=== PATIENT | female | born 1955 | race Hispanic/Latino ===

== ENCOUNTER 2017-08-16 09:10 | Inpatient (IN) | payer BC, MEDICARE ==
--- NOTE | 2017-08-16 10:02 | ED PDOC ---
Arrival/HPI - General Chief Complaint: Trauma Time Seen by Provider: 08/16/17 09:20 Historian: Patient, Spouse - History of Present Illness Narrative History of Present Illness (Text): 08/16/17 09:58 This 62 yo female with pmh Alzheimer , presents to this Emergency department with her complaining of 2 episodes of falling. stated patient was eating on standing position, when patient legs gave out. Patient fell on her buttocks. Later patient got up. He took patient to the sofa. stated that he went upstairs to grab his wallet, when he heard patient falling again. stated this is not normal for patient, and he is concern something is wrong. denies loc, cp, n/v, abdominal pain. Patient denies other complains except for buttock pain. Time/Duration: Prior to Arrival Context: Home Past Medical History - Provider Review Nursing Documentation Reviewed: Yes - Infectious Disease Hx of Infectious Diseases: None - Reproductive Menopause: Yes - Past Medical History Past Medical History: No Previous - Cardiac Hx Cardiac Disorders: No (pt denies) - Pulmonary Hx Respiratory Disorders: No - Neurological Hx Neurological Disorder: No Hx Alzheimer's Disease: Yes - HEENT Hx HEENT Disorder: No - Renal Hx Renal Disorder: No - Endocrine/Metabolic Hx Endocrine Disorders: No - Hematological/Oncological Hx Blood Transfusions: No Hx Blood Transfusion Reaction: No - Integumentary Hx Dermatological Disorder: No - Musculoskeletal/Rheumatological Hx Falls: No - Gastrointestinal Hx Gastrointestinal Disorders: No - Genitourinary/Gynecological Hx Genitourinary Disorders: No - Psychiatric Hx Depression: No Hx Emotional Abuse: No Hx Physical Abuse: No Hx Substance Use: No - Past Surgical History Past Surgical History: No Previous - Anesthesia Hx Anesthesia: No Hx Anesthesia Reactions: No Hx Malignant Hyperthermia: No - Suicidal Assessment Feels Threatened In Home Enviroment: No Family/Social History - Physician Review Nursing Documentation Reviewed: Yes Family/Social History: Other (noncontributory) Smoking Status: Never Smoked Hx Alcohol Use: No Hx Substance Use: No Allergies/Home Meds Allergies/Adverse Reactions: Allergies No Known Allergies Allergy (Verified 08/16/17 09:28) Home Medications: Home Meds Medication Instructions Recorded Confirmed Donepezil [Aricept] 1 tab PO DAILY 08/16/17 08/16/17 Review of Systems - Review of Systems Constitutional: Normal. absent: Fatigue, Fevers Eyes: Normal ENT: Normal Respiratory: Normal Cardiovascular: Normal Gastrointestinal: Normal Genitourinary Female: Normal Musculoskeletal: Normal Skin: Normal Neurological: Other (see hpi) Endocrine: Normal Hemo/Lymphatic: Normal Psychiatric: Normal Physical Exam Vital Signs Temp Pulse Resp BP Pulse Ox 08/16/17 10:07 98 F 08/16/17 09:21 98.5 F 66 20 129/72 98 Temperature: Afebrile Blood Pressure: Normal Pulse: Regular Respiratory Rate: Normal Appearance: Positive for: Well-Appearing, Non-Toxic, Comfortable Pain Distress: None Mental Status: Positive for: other (Patient is alert, but not oriented to place , person or time) - Systems Exam Head: Present: Atraumatic, Normocephalic Pupils: Present: PERRL Extroacular Muscles: Present: EOMI Conjunctiva: Present: Normal Mouth: Present: Moist Mucous Membranes Neck: Present: Normal Range of Motion Respiratory/Chest: Present: Clear to Auscultation, Good Air Exchange. No: Respiratory Distress, Accessory Muscle Use Cardiovascular: Present: Regular Rate and Rhythm, Normal S1, S2. No: Murmurs Abdomen: Present: Normal Bowel Sounds. No: Tenderness, Distention, Peritoneal Signs Back: Present: Normal Inspection Upper Extremity: Present: Normal Inspection. No: Cyanosis, Edema Lower Extremity: Present: NORMAL PULSES, Normal ROM, Other (Mild tenderness on righ buttocks/ sacrum area. no ecchymosis, or abrasion). No: Edema, CALF TENDERNESS Neurological: Present: GCS=15, CN II-XII Intact, Speech Normal, Motor Func Grossly Intact, Normal Sensory Function, Normal Cerebellar Funct Skin: Present: Warm, Dry, Normal Color. No: Rashes Psychiatric: Present: Alert, Other (baseline) Medical Decision Making ED Course and Treatment: 08/16/17 11:[address] Andrea regarding patient complaining of near syncope, CT shows right sacrum non-displaced Fx. reviewed labs, EKG. She agrees with plan for admission. 08/16/17 11:58 Patient and agrees with plan for admission. Re-evaluation Time: 11:58 Reassessment Condition: Re-examined, Improving,but remains with symptoms - Lab Interpretations Lab Results: 08/16/17 10:00 08/16/17 10:00 Lab Results 08/16/17 10:36: Urine Color Yellow, Urine Appearance Clear, Urine pH 6.5, Ur Specific Hardy 1.025, Urine Protein 30 H, Urine Glucose (UA) Negative, Urine Ketones Negative, Urine Blood Negative, Urine Nitrate Negative, Urine Bilirubin Negative, Urine Urobilinogen 0.2, Ur Leukocyte Esterase Negative, Urine RBC 0 - 2, Urine WBC 0 - 2, Ur Epithelial Cells 3 - 4, Amorphous Sediment Small, Urine Bacteria Many, Hyaline Casts 0 - 2, Urine Other Fiber 08/16/17 10:00: PT 12.2, INR 1.06, APTT 31.6 08/16/17 10:00: Sodium 141, Potassium 3.9, Chloride 102, Carbon Dioxide 29, Anion Gap 13, BUN 28 H, Creatinine 0.8, Est GFR ( Amer) > 60, Est GFR ( Non-Af Amer) > 60, Random Glucose 86, Calcium 10.2, Magnesium 2.3 H, Total Bilirubin 0.7, AST 24, ALT 30, Alkaline Phosphatase 50, Lactate Dehydrogenase 367, Total Creatine Kinase 74, Troponin I < 0.01, Total Protein 6.9, Albumin 4.1 , Globulin 2.8, Albumin/Globulin Ratio 1.5 08/16/17 10:00: WBC 5.3, RBC 4.44, Hgb 12.6, Hct 39.6, MCV 89.2, MCH 28.4, MCHC 31.8, RDW 13.4, Plt Count 216, MPV 10.0, Gran % 51.4, Lymph % (Auto) 39.6 H, Glasscock % (Auto) 6.5 H, Eos % (Auto) 2.1, Baso % (Auto) 0.4, Gran # 2.70, Lymph # 2.1, Glasscock # 0.3, Eos # 0.1, Baso # 0.02 I have reviewed the lab results: Yes Interpretation: No clinic. lab abnormalty - RAD Interpretation Narrative RAD Interpretations (Text): 08/16/17 11:43 Chest x-rays: NAD 08/16/17 11:44 PROCEDURE: CT HEAD WITHOUT CONTRAST. HISTORY: near syncope COMPARISON: None available. TECHNIQUE: Axial computed tomography images were obtained through the head/brain without intravenous contrast. Radiation dose: Total exam DLP = 965.13 mGy-cm. This CT exam was performed using one or more of the following dose reduction techniques: Automated exposure control, adjustment of the mA and/or kV according to patient size, and/or use of iterative reconstruction technique. FINDINGS: HEMORRHAGE: No intracranial hemorrhage. BRAIN: There are mild chronic microangiopathic changes. There is no mass, mass effect or abnormal extra-axial fluid collection. VENTRICLES: There is moderate age-related global parenchymal volume loss proportionate enlargement of the ventricles and cortical sulci. CALVARIUM: The skull base and calvarium are normal. PARANASAL SINUSES: Predominantly clear. MASTOID AIR CELLS: Predominantly clear. OTHER FINDINGS: None. IMPRESSION: No acute intracranial abnormality. Mild chronic microangiopathic changes and moderate age-related global parenchymal volume loss. 08/16/17 11:44 PROCEDURE: CT Lumbar Spine without contrast HISTORY: lower back pain and sacrum pain s/p fall COMPARISON: None. TECHNIQUE: Axial computed tomography images were obtained of the lumbar spine without the use of intravenous contrast. Coronal and sagittal reformatted images were created and reviewed. Radiation dose: Total exam DLP = 520.75 mGy-cm. This CT exam was performed using one or more of the following dose reduction techniques: Automated exposure control, adjustment of the mA and/or kV according to patient size, and/or use of iterative reconstruction technique. FINDINGS: VERTEBRAE: There is mild dextroscoliosis in the lumbar spine. There is degenerative 3 mm retrolisthesis of L4 on L5. There is diffuse bone demineralization. There is no acute fracture in the lumbar spine, spondylolysis or spondylolisthesis. There is an acute nondisplaced fracture in the right sacral ala. The sacroiliac joints are grossly preserved except for mild degenerative osteoarthrosis. DISCS/SPINAL CANAL/NEURAL FORAMINA: There is multilevel degenerative disc disease with anterior spurring, reduced disc heights and multilevel facet arthropathy, worse at L4-5 with desiccation of the L4-5 disc. L4-5, there is a diffuse disc bulge and mild ligamentum flavum infolding without spinal canal stenosis. Mild bilateral facet arthropathy contributes to moderate neural foraminal stenosis. PARASPINAL SOFT TISSUES: The paraspinous soft tissues are normal OTHER FINDINGS: None. IMPRESSION: 1. Acute nondisplaced fracture in the right sacral ala. 2. No evidence of acute fracture in the lumbar spine or spondylolysis. 3. Multilevel degenerative disc disease, worse at L4-5 with degenerative 3 mm retrolisthesis of L4 on L5, moderate neural foraminal stenosis without spinal canal stenosis. Radiology Orders: 08/16/17 09:54 HEAD W/O CONTRAST [CT] Stat LUMBAR SPINE W/O CONTRAST [CT] Stat 08/16/17 09:56 CHEST PORTABLE [RAD] Stat - EKG Interpretation Interpreted by ED Physician: Yes (Sinus Bradycardia @ [address] changes) Type: 12 lead EKG Comparison: No previous EKG avail. - Medication Orders Current Medication Orders: Sodium Chloride (Sodium Chloride 0.9%) 1,000 mls @ 999 mls/hr IV .Q1H1M STA Stop: 08/16/17 12:48 Disposition/Present on Arrival - Present on Arrival Any Indicators Present on Arrival: No History of DVT/PE: No History of Uncontrolled Diabetes: No Urinary Catheter: No History of Decub. Ulcer: No History Surgical Site Infection Following: None - Disposition Have Diagnosis and Disposition been Completed?: Yes Diagnosis: Sacral fracture, closed, Near syncope Disposition: HOSPITALIZED Disposition Time: 11:58 Patient Plan: Admission Patient Problems: Current Active Problems Problem Status Onset Near syncope Acute Sacral fracture, closed Acute Condition: STABLE Referrals: Americo Mathew MD [Primary Care Provider] - Follow up with primary Forms: [email or web address] (Serbian)
[2017-08-16 10:25] LABS: ALB/GLOB RATIO 1.5 (1.1-1.8); ALBUMIN 4.1 g/dL (3.0-4.8); ALT/SGPT 30 U/L (7-56); AST/SGOT 24 U/L (14-36); BLOOD UREA NITROGEN 28 mg/dL (7-21); CALCIUM 10.2 mg/dL (8.4-10.5); GFR AFRICAN-AMERICAN > 60; GFR NON-AFRICAN AMERICAN > 60; MAGNESIUM 2.3 mg/dL (1.7-2.2)
[2017-08-16 10:26] LABS: BASO # 0.02 K/mm3 (0.0-2.0); BASO % 0.4 % (0.0-3.0); EOS # 0.1 (0.0-0.7); EOS % 2.1 % (1.5-5.0); GRAN # 2.7 (1.4-6.5); GRAN % 51.4 % (50.0-68.0); HEMOGLOBIN 12.6 g/dL (12.0-16.0); LYMPH # 2.1 (1.2-3.4); LYMPH % 39.6 % (22.0-35.0); MEAN CELL VOLUME 89.2 fl (80.0-105.0); MEAN CORPUSCULAR HEMOGLOBIN 28.4 pg (25.0-35.0); MEAN CORPUSCULAR HGB CONC 31.8 g/dl (31.0-37.0); MONO # 0.3 (0.1-0.6); MONO % 6.5 % (1.0-6.0); RBC 4.44 10^6/uL (3.5-6.1); RED CELL DISTRIBUTION WIDTH 13.4 % (11.5-14.5); WHITE BLOOD COUNT 5.3 10^3/ul (4.5-11.0)
[2017-08-16 10:34] LABS: INR 1.06 (0.93-1.08); PARTIAL THROMBOPLASTIN TIME 31.6 Seconds (25.1-36.5); PROTHROMBIN TIME 12.2 SECONDS (9.4-12.5)
[2017-08-16 10:36] LABS: TROPONIN I < 0.01 ng/mL
[2017-08-16 10:44] LABS: PH,URINE 6.5 (4.7-8.0); URINE BILIRUBIN NEGATIVE (NEGATIVE); URINE BLOOD NEGATIVE (NEGATIVE); URINE COLOR YELLOW (YELLOW); URINE GLUCOSE (UA) NEGATIVE (NEGATIVE); URINE LEUKOCYTE ESTERASE NEGATIVE Leu/uL (NEGATIVE); URINE NITRATE NEGATIVE (NEGATIVE); URINE PROTEIN 30 mg/dL (<30 mg/dL); URINE UROBILINOGEN 0.2 E.U./dL (<1 E.U./dL)
[2017-08-16 10:45] LABS: URINE APPEARANCE CLEAR (CLEAR)
[2017-08-16 10:49] LABS: URINE RBC 0 - 2 /hpf (0-2); URINE WBC 0 - 2 /hpf (0-6)
[2017-08-16 10:50] LABS: URINE AMORPHOUS SEDIMENT SMALL; URINE BACTERIA MANY (NEG); URINE HYALINE CAST 0 - 2 /hpf
--- NOTE | 2017-08-16 11:14 | CT ---
PROCEDURE: CT HEAD WITHOUT CONTRAST. HISTORY: near syncope COMPARISON: None available. TECHNIQUE: Axial computed tomography images were obtained through the head/brain without intravenous contrast. Radiation dose: Total exam DLP = 965.13 mGy-cm. This CT exam was performed using one or more of the following dose reduction techniques: Automated exposure control, adjustment of the mA and/or kV according to patient size, and/or use of iterative reconstruction technique. FINDINGS: HEMORRHAGE: No intracranial hemorrhage. BRAIN: There are mild chronic microangiopathic changes. There is no mass, mass effect or abnormal extra-axial fluid collection. VENTRICLES: There is moderate age-related global parenchymal volume loss proportionate enlargement of the ventricles and cortical sulci. CALVARIUM: The skull base and calvarium are normal. PARANASAL SINUSES: Predominantly clear. MASTOID AIR CELLS: Predominantly clear. OTHER FINDINGS: None. IMPRESSION: No acute intracranial abnormality. Mild chronic microangiopathic changes and moderate age-related global parenchymal volume loss.
--- NOTE | 2017-08-16 11:31 | CT ---
PROCEDURE: CT Lumbar Spine without contrast HISTORY: lower back pain and sacrum pain s/p fall COMPARISON: None. TECHNIQUE: Axial computed tomography images were obtained of the lumbar spine without the use of intravenous contrast. Coronal and sagittal reformatted images were created and reviewed. Radiation dose: Total exam DLP = 520.75 mGy-cm. This CT exam was performed using one or more of the following dose reduction techniques: Automated exposure control, adjustment of the mA and/or kV according to patient size, and/or use of iterative reconstruction technique. FINDINGS: VERTEBRAE: There is mild dextroscoliosis in the lumbar spine. There is degenerative 3 mm retrolisthesis of L4 on L5. There is diffuse bone demineralization. There is no acute fracture in the lumbar spine, spondylolysis or spondylolisthesis. There is an acute nondisplaced fracture in the right sacral ala. The sacroiliac joints are grossly preserved except for mild degenerative osteoarthrosis. DISCS/SPINAL CANAL/NEURAL FORAMINA: There is multilevel degenerative disc disease with anterior spurring, reduced disc heights and multilevel facet arthropathy, worse at L4-5 with desiccation of the L4-5 disc. L4-5, there is a diffuse disc bulge and mild ligamentum flavum infolding without spinal canal stenosis. Mild bilateral facet arthropathy contributes to moderate neural foraminal stenosis. PARASPINAL SOFT TISSUES: The paraspinous soft tissues are normal OTHER FINDINGS: None. IMPRESSION: 1. Acute nondisplaced fracture in the right sacral ala. 2. No evidence of acute fracture in the lumbar spine or spondylolysis. 3. Multilevel degenerative disc disease, worse at L4-5 with degenerative 3 mm retrolisthesis of L4 on L5, moderate neural foraminal stenosis without spinal canal stenosis.
--- NOTE | 2017-08-16 11:35 | RAD ---
HISTORY: near syncope COMPARISON: 08/25/2015. FINDINGS: LUNGS: The lungs are well inflated and clear. PLEURA: No significant pleural effusion identified, no pneumothorax apparent. CARDIOVASCULAR: Normal. OSSEOUS STRUCTURES: Within normal limits for the patient's age with VISUALIZED UPPER ABDOMEN: Normal. OTHER FINDINGS: None. IMPRESSION: No active pulmonary disease.
[2017-08-16] MEDS ORDERED: Sodium Chloride 0.9% 1,000 ML IV STA (11:48)
[2017-08-16] MEDS ORDERED: Petrolatum Oint Foilpak (5 gm) TOP PRN (14:54)
[2017-08-16 14:55] VITALS: BMI 20.1
[2017-08-16] MEDS ORDERED: Influenza Vaccine 60 mcg/0.5 mL SYR (4YR UP) IM ONE (14:55)
[2017-08-16] MEDS ORDERED: Pneumococcal 23-Valent Vaccine IM ONE (14:55)
--- NOTE | 2017-08-16 15:49 | CARD ---
APPROVED REPORT EKG Measurement Heart [id number] CO [id number] <Conclusion> Sinus bradycardia Otherwise normal ECG
--- NOTE | 2017-08-17 03:26 | HP ---
HISTORY OF PRESENT ILLNESS: The patient is a 62-year-old brought in by . The patient's states lately she has not been sleeping well and that was disturbing his sleep, but he states last night she slept well, she woke up around 8:00 and then she got up to go to kitchen. While she was eating her sandwich, she just flopped down without any warning sign. He states he saw her twitching and after that she just sat down on the floor as if her muscles gave up. She had never lost consciousness. Did not complain of any chest pain or shortness of breath. The patient's states he went upstairs to grab his wallet to be with her and to call ambulance and she came back. While he was on his way down he heard thump and he found her on the floor. She did not lose consciousness, did not have any seizure-like activity, did not complain of any chest pain. No nausea or vomiting. No diarrhea. Denies any chest pain. PAST MEDICAL HISTORY: Only significant for dementia. ALLERGIES: SHE IS NOT ALLERGIC TO ANY MEDICATION. MEDICATIONS AT HOME: According to , she does not take any medicine except Aricept. FAMILY HISTORY: She has a strong family history of dementia. SOCIAL HISTORY: She is , lives with her . Denies smoking, drinking, or alcohol use. REVIEW OF SYSTEMS: Significant for being forgetful and having being confused and disoriented at times. PHYSICAL EXAMINATION: GENERAL: She is awake, alert, oriented, and anxious. VITAL SIGNS: She is afebrile, pulse 75, respirations 20, and blood pressure 129/62. LUNGS: Bilateral good airflow. No rhonchi or crackle. HEART: S1 and S2 audible. ABDOMEN: Soft and nontender. No rebound. No guarding. NEUROLOGIC: She is awake, alert, oriented, able to communicate, able to move all extremities. LABORATORY EXAMINATION: WBC of 5.3, hemoglobin 12.6, hematocrit 39.6, and platelet 216. PT 12.2 and INR 1.06. Chemistry: Sodium 141, potassium 3.9, chloride 102, CO2 of 29, BUN 28, creatinine 0.8, blood sugar of 86, magnesium 2.3, calcium 10.2, AST 74, and ALT 30. Urinalysis is unremarkable. X-ray chest, no active pulmonary disease. Lumbar spine CT showed non-displaced fracture in the right sacral ala. No evidence of acute fracture. Multilevel degenerative disk disease. ASSESSMENT AND PLAN: 1. Status post fall. 2. Generalized weakness, doubt transient ischemic attack or cerebrovascular accident, looks like discoordination. 3. Status post fall and sacral non-displaced fracture. PLAN: I will order for carotid Doppler. I will start her on IV fluid. Dr. Ulloa for consult. Ordered for carotid Doppler. Request for physical therapy evaluation. Patricia Andrea MD
[2017-08-17 08:01] VITALS: RESP 18
[2017-08-17 19:08] VITALS: O2SAT 97
--- NOTE | 2017-08-17 21:10 | PN ---
DATE: SUBJECTIVE: The patient is 62-year-old, seen and examined, seems to be confused and disoriented, unable to recollect her information, was evaluated by physical therapy. High risk of fall, recommended for subacute rehab versus TCU. PHYSICAL EXAMINATION: VITAL SIGNS: She is afebrile, pulse 60, respirations 18, and blood pressure 128/64. LUNGS: Bilateral fair airflow. No rhonchi or crackles. HEART: S1 and S2 audible. ABDOMEN: Soft, nontender. No rebound. No guarding. NEUROLOGIC: She is awake and alert, but somewhat confused and disoriented. LABORATORY DATA: Her troponin is negative. Her liver and kidney function is fine. Urinalysis is unremarkable. Carotid Doppler is pending. CT scan of the head is negative. ASSESSMENT: 1. Status post fall. 2. History of dementia. 3. Deconditioning and difficulty walking. PLAN: I will request for TCU evaluation. The patient is high risk of fall. Awaiting a neuro input. We will discuss with the patient's if he is agreeable we might put her in TCU or home PT. Patricia Andrea MD
--- NOTE | 2017-08-18 08:12 | CON ---
DATE: 08/17/2017 ORTHOPEDIC CONSULT LOCATION: The patient is in room 365. HISTORY OF PRESENT ILLNESS: This is a 62-year-old female who slipped and fell at home just prior to admission actually 2 times at home. The found her on the floor, came to the Emergency Room. X-ray the point of pain, which was the right side of her low back at the sacrum showed an undisplaced fracture of the sacrum, consistent with a stable fracture pattern that should be unable to get up out of bed to avoid further osteopenia. We will do physical therapy here at the hospital to make sure she walks with more security and may be walk with a walker or at least a cane, but she should get stronger here, so she does not fall again, because if she keeps falling that she could break her hip possible, so what we will do is give her physical therapy and get her up out of bed. The pain is minimal. She has no signs of hip fracture or other lower extremities fractures. FINAL DIAGNOSIS: Stable right sacral alar fracture consistent with her early physical therapy ambulation with a walker, weightbearing to tolerance. Segundo Ulloa DO
--- NOTE | 2017-08-18 08:32 | CP.PCM.CON ---
<Apryl Molina - Last Filed: 08/18/17 18:27> History of Present Illness - History of Present Illness History of Present Illness: PGY-[address] Oviedo Neurology Consult: AMS/Fall Ms Barbara Glover, 62F, with PMHx sig for past fall and dementia (baseline: can self feed but cannot change clothes/shower), was brought in from home after a fall. provided the history. Lately, pt has been drinking less water due to lack of motivation, no choking noted. After getting up in the morning, pt got up to the kitchen. While eating a sandwich, pt just flopped down without any warning sign. No loss of consciousness. Per , pt sat down on the floor and twitched. While went upstairs to call the ambulance, her heart a thump and found pt on the floor. Pt sustained a stable R sacral alar fracture. No surgery needed. During the hospital stay, Pt get confused, agitated and climb out of bed. 1:[address] for safety and Ativan was given. VS stable except occasional bradycardia. CBC and CMP unremarkable. U/A negative. Denies LOC, shaking, CP, SOB, N/V/D/C, dysuria, urinary frequency. Travel from [place] during and came back to [place] around [place]. Denies recent change in med or recent sickness. Head CT: No acute intracranial abnomrality. Mild chronic microangiopathic changes and moderate age related global parenchmal volume loss Lumbar CT: Acute non-displaces R sacral ala fracture. Degenerative disc disease L4-5 with retrolithesis 3mm on L4 on L5 Moderate neural foraminal stenosis without spinal cancal stenosis PMH Dementia. Hx Fall PSH ORIF Humerus, L FH Dementia in family history. Mom has diabetes SH , living with at home. Denies smoking, drink, drugs All NKDA Med Donepezil 5mg daily at 1pm PMD: Dr Mathew Neurologist: Dr Casi Pritchett, [facility]. Pt did not follow up for a while already , Mr Glover, (m) [phone] Review of Systems - Review of Systems All systems: reviewed and no additional remarkable complaints except Review of Systems: As per HPI Past Patient History - Infectious Disease Hx of Infectious Diseases: None - Past Social History Smoking Status: Never Smoked - CARDIAC Hx Cardiac Disorders: No (pt denies) - PULMONARY Hx Respiratory Disorders: No - NEUROLOGICAL Hx Neurological Disorder: No Hx Alzheimer's Disease: Yes (dx 2011) - HEENT Hx HEENT Problems: Yes (eyeglasses) - RENAL Hx Chronic Kidney Disease: No - ENDOCRINE/METABOLIC Hx Endocrine Disorders: No - HEMATOLOGICAL/ONCOLOGICAL Hx Blood Disorders: No - INTEGUMENTARY Hx Dermatological Problems: No - MUSCULOSKELETAL/RHEUMATOLOGICAL Hx Falls: Yes (2012 and 2x's today) - GASTROINTESTINAL Hx Gastrointestinal Disorders: No - GENITOURINARY/GYNECOLOGICAL Hx Genitourinary Disorders: No - PSYCHIATRIC Hx Depression: No Hx Emotional Abuse: No Hx Physical Abuse: No Other/Comment: pt has trouble sleeping at night - SURGICAL HISTORY Hx Surgeries: No - ANESTHESIA Hx Anesthesia: No Hx Anesthesia Reactions: No Hx Malignant Hyperthermia: No Meds Allergies/Adverse Reactions: Allergies Allergy/AdvReac Type Severity Reaction Status Date / Time No Known Allergies Allergy Verified 08/16/17 09:28 - Medications Medications: Current Medications Acetaminophen (Tylenol 325mg Tab) 650 mg PO Q6H PRN PRN Reason: Fever >100.4 F Donepezil HCl (Aricept) 5 mg PO DAILY [facility] Emollient Ointment (Vaseline Oint) 5 gm TOP Q4 PRN PRN Reason: Dry skin Lorazepam (Ativan) 0.5 mg IVP Q12H PRN; Protocol PRN Reason: Anxiety Last Admin: 08/17/17 19:08 Dose: 0.5 mg Physical Exam - Constitutional Appears: No Acute Distress - Head Exam Head Exam: ATRAUMATIC, NORMAL INSPECTION, NORMOCEPHALIC - Eye Exam Eye Exam: EOMI, Normal appearance, PERRL Pupil Exam: NORMAL ACCOMODATION - ENT Exam ENT Exam: Mucous Membranes Dry - Neck Exam Additional comments: supple - Respiratory Exam Respiratory Exam: Clear to Auscultation Bilateral, NORMAL BREATHING PATTERN - Cardiovascular Exam Cardiovascular Exam: REGULAR RHYTHM - GI/Abdominal Exam GI & Abdominal Exam: Normal Bowel Sounds, Soft. absent: Tenderness - Extremities Exam Extremities exam: Positive for: pedal pulses present. Negative for: calf tenderness, pedal edema - Neurological Exam Additional comments: AAO x 1 Recall 0/3 Motor: move all extremites sensory: grossly intact limited by incoorperation - Psychiatric Exam Psychiatric exam: Anxious - Skin Skin Exam: Dry, Warm Results - Vital Signs Recent Vital Signs: Last Vital Signs Temp 98.5 F 08/17/17 16:00 Pulse 63 08/17/17 18:00 Resp 18 08/17/17 16:00 BP 113/72 08/17/17 16:00 Pulse Ox 97 08/17/17 16:00 - Labs Result Diagrams: 08/16/17 10:00 08/16/17 10:00 Assessment & Plan - Assessment and Plan (Free Text) Plan: Consult: AMS/Fall Ms Barbara Glover, 62F, with PMHx sig for dementia, was brought in from home after a fall. No loss of consciousness. Pt sustained a stable R sacral alar fracture. No surgery needed. During the hospital stay, Pt get confused, agitated and climb out of bed. 1:[address] for safety and Ativan was given. VS stable except SBP was slightly low in 100s/60s in one occasion and occasional bradycardia. CBC unremarkable. CMP is significant for slight dehydration at admission. U/A negative. Fall likely due to transient hypoperfusion compounded by bradycardia - CT head: Head CT: No acute intracranial abnomrality. Mild chronic microangiopathic changes and moderate age related global parenchmal volume loss - Carotid doppler pending official read - Recommend Home PT - Maintain SBP 120-130 - gentle hydration during the day - avoid sudden drop in blood pressire - Get up or sit down slowly, count to 10 Sacral fracture, acute, non-displaced Status post mechanical fall Gait dysfunction possibly due to deconditioning with global parenchymal volume loss due to dementia - Lumbar CT: Acute non-displaces R sacral ala fracture. Degenerative disc disease L4-5 with retrolithesis 3mm on L4 on L5; Moderate neural foraminal stenosis without spinal cancal stenosis - Recommend Home Physical therapy - conservative management per primary Dementia - COntinue current medication during early AM to stay active in daytime - build mental exercises during daily routine - follow up with neurologist outpatient for further eval. - Discussed about risk/benefit and side effect of donepazil and possibly nemanda. Especially effect on bradycardia - thiamine 100mg daily; CoQ 200mg daily; turmeric curcumin 1000mg qAM s/r/d/w Dr. Oviedo <Lorenzo Oviedo - Last Filed: 08/19/17 10:22> Results - Vital Signs Recent Vital Signs: Last Vital Signs Temp 97.4 F L 08/18/17 08:41 Pulse 54 L 08/18/17 08:41 Resp 18 08/18/17 08:41 BP 113/65 08/18/17 08:41 Pulse Ox 97 08/18/17 08:41 - Labs Result Diagrams: 08/16/17 10:00 08/16/17 10:00 Attending/Attestation - Attestation I have personally seen and examined this patient.: Yes I have fully participated in the care of the patient.: Yes I have reviewed all pertinent clinical information: Yes
[2017-08-18 08:42] VITALS: BP 113/65; PULSE 54; TEMP 97.4
[2017-08-18] MEDS ORDERED: Influenza Vaccine 60 mcg/0.5 mL SYR (4YR UP) IM ONE (12:56)
--- NOTE | 2017-08-19 01:17 | DS ---
HISTORY OF PRESENT ILLNESS: The patient is a 62-year-old who came in after she flopped on the floor, did not lose consciousness as per , probably she had some muscular . The patient diagnosis of early Alzheimer, has been observed, being agitated more at nighttime, but does not want to give her any Ativan while she was here. PHYSICAL EXAMINATION: GENERAL: Today; she is awake, alert, oriented, and communicative. VITAL SIGNS: She is afebrile, pulse 54, respirations 18, and blood pressure 113/65. LUNGS: Bilateral fair airflow. No rhonchi or crackle. HEART: S1 and S2 audible. ABDOMEN: Soft and nontender. No rebound. No guarding. NEUROLOGIC: The patient is awake, alert, and forgetful. ASSESSMENT: 1. Status post fall, etiology unknown. Carotid Doppler is pending. 2. Fracture of ala of sacrum. 3. Early Alzheimer. PLAN: The patient will be discharged home today after the physical therapy arrangement has been made. She will continue her Aricept and we will try to arrange for home therapy as per family's request. Patricia Andrea MD
== END 2017-08-18 13:32 | disposition home or self-care (01) | DRG 552 ==
LOC: ED 09:10 → ERH 12:00 → 3RNO 13:14
PROVIDERS: ADMIT Internal Medicine; ATTEND Internal Medicine
DX: S32.110A Nondisplaced Zone I fracture of sacrum, initial encounter for closed fracture (principal); G30.9 Alzheimer's disease, unspecified; F02.80 Dementia in other diseases classified elsewhere, unspecified severity, without behavioral disturbance, psychotic disturbance, mood disturbance, and anxiety; M51.36 Other intervertebral disc degeneration, lumbar region; R26.2 Difficulty in walking, not elsewhere classified; W19.XXXA Unspecified fall, initial encounter; Y93.89 Activity, other specified; Y92.009 Unspecified place in unspecified non-institutional (private) residence as the place of occurrence of the external cause

== ENCOUNTER 2017-08-24 03:24 | Inpatient (IN) | payer MEDICARE ==
[2017-08-24 03:31] VITALS: BMI 20.2
--- NOTE | 2017-08-24 03:53 | ED PDOC ---
Arrival/HPI - General Chief Complaint: Altered Mental Status Time Seen by Provider: 08/24/17 03:34 Historian: Spouse - History of Present Illness Narrative History of Present Illness (Text): 08/24/17 03:50 Barbara Glover is a 62 year old female, whose past medical history includes Alzheimer's dementia and recent sacral fracture, who presents to the Emergency department brought in by for worsening dementia tonight. states patient has been experiencing increasing agitation and confusion. Husban states patient became very violent with him tonight. Patient denies any chest pain, abdominal pain, shortness of breath, nausea, vomiting, or any other complaints. Symptom Onset: Gradual Symptom Course: Unchanged Activities at Onset: Light Context: Home Past Medical History - Provider Review Nursing Documentation Reviewed: Yes - Infectious Disease Hx of Infectious Diseases: None - Past Medical History Past Medical History: No Previous - Cardiac Hx Cardiac Disorders: No (pt denies) - Pulmonary Hx Respiratory Disorders: No - Neurological Hx Neurological Disorder: No Hx Alzheimer's Disease: Yes (dx 2011) - HEENT Hx HEENT Disorder: Yes (eyeglasses) - Renal Hx Renal Disorder: No - Endocrine/Metabolic Hx Endocrine Disorders: No - Hematological/Oncological Hx Blood Disorders: No - Integumentary Hx Dermatological Disorder: No - Musculoskeletal/Rheumatological Hx Falls: Yes (2012 and 2x's today) - Gastrointestinal Hx Gastrointestinal Disorders: No - Genitourinary/Gynecological Hx Genitourinary Disorders: No - Psychiatric Hx Depression: No Hx Emotional Abuse: No Hx Physical Abuse: No Hx Substance Use: No Other/Comment: pt has trouble sleeping at night - Past Surgical History Past Surgical History: No Previous - Anesthesia Hx Anesthesia: No Hx Anesthesia Reactions: No Hx Malignant Hyperthermia: No - Suicidal Assessment Feels Threatened In Home Enviroment: No Family/Social History - Physician Review Nursing Documentation Reviewed: Yes Family/Social History: Unknown Family HX Smoking Status: Never Smoked Hx Alcohol Use: No Hx Substance Use: No Allergies/Home Meds Allergies/Adverse Reactions: Allergies No Known Allergies Allergy (Verified 08/24/17 03:30) Home Medications: Home Meds Medication Instructions Recorded Confirmed Donepezil [Aricept] 1 tab PO DAILY 08/16/17 08/24/17 Review of Systems - Physician Review All systems were reviewed & negative as marked: Yes - Review of Systems Constitutional: Normal. absent: Fevers Eyes: Normal ENT: Normal Respiratory: Normal. absent: SOB, Cough Cardiovascular: Normal. absent: Chest Pain Gastrointestinal: Normal. absent: Abdominal Pain, Diarrhea, Nausea, Vomiting Genitourinary Female: Normal. absent: Dysuria, Frequency, Hematuria, Urine Output Changes Musculoskeletal: Normal. absent: Back Pain, Neck Pain Skin: Normal. absent: Rash Neurological: Other (+confusion). absent: Headache, Dizziness Endocrine: Normal Hemo/Lymphatic: Normal Psychiatric: Other (+agitation) Physical Exam Vital Signs Reviewed: Yes Vital Signs Temp Pulse Resp BP Pulse Ox 08/24/17 08:44 98.0 F 61 17 150/89 97 08/24/17 07:24 98 F 79 20 129/74 97 08/24/17 03:46 98.2 F 60 17 147/67 100 Temperature: Afebrile Blood Pressure: Normal Pulse: Regular Respiratory Rate: Normal Appearance: Positive for: Well-Appearing, Non-Toxic, Comfortable Pain Distress: None Mental Status: Positive for: other (Alert and Oriented x2) - Systems Exam Head: Present: Atraumatic, Normocephalic Pupils: Present: PERRL Extroacular Muscles: Present: EOMI Conjunctiva: Present: Normal Mouth: Present: Moist Mucous Membranes Neck: Present: Normal Range of Motion Respiratory/Chest: Present: Clear to Auscultation, Good Air Exchange. No: Respiratory Distress, Accessory Muscle Use Cardiovascular: Present: Regular Rate and Rhythm, Normal S1, S2. No: Murmurs Abdomen: Present: Normal Bowel Sounds. No: Tenderness, Distention, Peritoneal Signs Back: Present: Normal Inspection Upper Extremity: Present: Normal Inspection. No: Cyanosis, Edema Lower Extremity: Present: Normal Inspection. No: Edema Neurological: Present: GCS=15, CN II-XII Intact, Speech Normal Skin: Present: Warm, Dry, Normal Color. No: Rashes Psychiatric: Present: Alert. No: Oriented x 3 (oriented x2) Medical Decision Making ED Course and Treatment: 08/24/17 03:51 Impression: 62 year old female brought in for increasing agitation and confusion. Plan: -- EKG -- Chest X-ray -- Labs, alcohol level -- Urinalysis, urine drug screen -- Reassess and disposition Prior Visits: Notes and results from previous visits were reviewed. On 08/16/2017, pt was seen in the Emergency department s/p fall. Pt was admitted to the hospital for further evaluation. Progress Notes: Reviewed EKG, NSR at [address]-segment elevations or depressions, no T-wave inversions, normal intervals. 08/24/17 05:17 Chest X-ray reviewed, shows no acute processes. Case discussed with Dr. Oreilly, who is aware and agrees with plan. Requests PES evaluation. Pt medically cleared for psychiatric evaluation/admission. seen by pes for admission - Lab Interpretations Lab Results: 08/24/17 04:13 08/24/17 04:13 Lab Results 08/24/17 05:35: Urine Opiates Screen Negative, Urine Methadone Screen Negative, Ur Barbiturates Screen Negative, Ur Phencyclidine Scrn Negative, Ur Amphetamines Screen Negative, U Benzodiazepines Scrn Negative, U Oth Cocaine Metabols Negative, U Cannabinoids Screen Negative 08/24/17 05:35: Urine Color Yellow, Urine Appearance Clear, Urine pH 6.0, Ur Specific [place] 1.010, Urine Protein Negative, Urine Glucose (UA) Negative, Urine Ketones Negative, Urine Blood Negative, Urine Nitrate Negative, Urine Bilirubin Negative, Urine Urobilinogen 0.2, Ur Leukocyte Esterase Negative 08/24/17 04:13: Alcohol, Quantitative < 10 08/24/17 04:13: Salicylates < 1 L, Acetaminophen < 10.0 L 08/24/17 04:13: Sodium 141, Potassium 3.9, Chloride 103, Carbon Dioxide 27, Anion Gap 15, BUN 26 H, Creatinine 0.8, Est GFR ( Amer) > 60, Est GFR ( Non-Af Amer) > 60, Random Glucose 80, Calcium 9.5, Total Bilirubin 0.3, AST 27, ALT 35, Alkaline Phosphatase 57, Total Protein 6.6, Albumin 3.9, Globulin 2.7, Albumin/Globulin Ratio 1.4 08/24/17 04:13: WBC 7.0 D, RBC 4.05, Hgb 11.7 L, Hct 35.7 L, MCV 88.1, MCH 28.9 , MCHC 32.8, RDW 13.2, Plt Count 222, MPV 9.7, Gran % 39.4 L, Lymph % (Auto) 49.9 H, [place] % (Auto) 8.0 H, Eos % (Auto) 2.0, Baso % (Auto) 0.7, Gran # 2.76, Lymph # (Auto) 3.5 H, [place] # (Auto) 0.6, Eos # (Auto) 0.1, Baso # (Auto) 0.05 I have reviewed the lab results: Yes - RAD Interpretation Radiology Orders: 08/24/17 03:37 CHEST PORTABLE [RAD] Stat Rehab Aid: ED Physician - EKG Interpretation Interpreted by ED Physician: Yes Type: 12 lead EKG - Medication Orders Current Medication Orders: Acetaminophen (Tylenol 325mg Tab) 650 mg PO Q4 PRN PRN Reason: Pain, Mild (1-3) Al Hydrox/Mg Hydrox/Simethicone (Maalox Plus 30 Ml) 30 ml PO DAILY PRN PRN Reason: Upset Stomach Donepezil HCl (Aricept) 5 mg PO HS [facility] Last Admin: 08/24/17 21:09 Dose: 5 mg Haloperidol (Haldol) 0.25 mg PO HS PRN; Protocol PRN Reason: Insomnia Last Admin: 08/24/17 22:40 Dose: 0.25 mg Re-Assess: Reassess Psych Meds Document 08/24/17 23:40 WP (Rec: 08/25/17 01:59 WP [id number]) Reassess Psych Med Effective Haloperidol (Haldol) 0.25 mg PO [facility] PRN Reason: Protocol Last Admin: 08/25/17 09:06 Dose: 0.25 mg Behavioural Document 08/25/17 09:06 RGO (Rec: 08/25/17 09:06 RGO [id number]) Maintenance Maintenance Dose No Nonmedicinal Nonmedicinal Interventions Therapeutic Communication Behavior Behavior for Medication: Anxiety Lorazepam (Ativan) 0.5 mg PO TID PRN; Protocol PRN Reason: Agitation Lorazepam (Ativan) 0.5 mg IM Q6H PRN; Protocol PRN Reason: Agitation Magnesium Hydroxide (Milk Of Magnesia) 30 ml PO DAILY PRN PRN Reason: Constipation Discontinued Medications Haloperidol (Haldol) 0.25 mg PO AMHS [facility] PRN Reason: Protocol Sodium Chloride (Sodium Chloride 0.9%) 1,000 mls @ 1,000 mls/hr IV .Q1H [facility] Last Admin: 08/24/17 10:29 Dose: - Transfer of Care Patient signed out to Dr:: jimmy patten dispo - Scribe Statement The provider has reviewed the documentation as recorded by the Scribe Ruby Wilde All medical record entries made by the Scribe were at my direction and personally dictated by me. I have reviewed the chart and agree that the record accurately reflects my personal performance of the history, physical exam, medical decision making, and the department course for this patient. I have also personally directed, reviewed, and agree with the discharge instructions and disposition. Disposition/Present on Arrival - Present on Arrival Any Indicators Present on Arrival: No History of DVT/PE: No History of Uncontrolled Diabetes: No Urinary Catheter: No History of Decub. Ulcer: No History Surgical Site Infection Following: None - Disposition Have Diagnosis and Disposition been Completed?: Yes Diagnosis: Dementia, unspecified, with behavioral disturbance Disposition: HOSPITALIZED Disposition Time: 07:00 Patient Problems: Current Active Problems Problem Status Onset Dementia, unspecified, with behavioral disturbance Acute Condition: STABLE
[2017-08-24 04:42] LABS: ACETAMINOPHEN < 10.0 ug/ml (10.0-20.0); SALICYLATE < 1 mg/dL (2.0-20.0)
[2017-08-24 04:44] LABS: ALB/GLOB RATIO 1.4 (1.1-1.8); ALBUMIN 3.9 g/dL (3.0-4.8); ALT/SGPT 35 U/L (7-56); AST/SGOT 27 U/L (14-36); BLOOD UREA NITROGEN 26 mg/dL (7-21); CALCIUM 9.5 mg/dL (8.4-10.5); GFR AFRICAN-AMERICAN > 60; GFR NON-AFRICAN AMERICAN > 60
[2017-08-24 04:47] LABS: BASO # 0.05 K/mm3 (0.0-2.0); BASO % 0.7 % (0.0-3.0); EOS # 0.1 (0.0-0.7); GRAN # 2.76 (1.4-6.5); GRAN % 39.4 % (50.0-68.0); HEMOGLOBIN 11.7 g/dL (12.0-16.0); LYMPH # 3.5 (1.2-3.4); LYMPH % 49.9 % (22.0-35.0); MEAN CELL VOLUME 88.1 fl (80.0-105.0); MEAN CORPUSCULAR HEMOGLOBIN 28.9 pg (25.0-35.0); MEAN CORPUSCULAR HGB CONC 32.8 g/dl (31.0-37.0); MEAN PLATELET VOLUME 9.7 fl (7.0-11.0); MONO # 0.6 (0.1-0.6); RBC 4.05 10^6/uL (3.5-6.1); RED CELL DISTRIBUTION WIDTH 13.2 % (11.5-14.5)
[2017-08-24] MEDS: Sodium Chloride 0.9% 1,000 ML IV SCH ×3 (05:43→10:29)
[2017-08-24 06:13] LABS: URINE BILIRUBIN NEGATIVE (NEGATIVE); URINE BLOOD NEGATIVE (NEGATIVE); URINE GLUCOSE (UA) NEGATIVE (NEGATIVE); URINE LEUKOCYTE ESTERASE NEGATIVE Leu/uL (NEGATIVE); URINE NITRATE NEGATIVE (NEGATIVE); URINE PROTEIN NEGATIVE mg/dL (<30 mg/dL); URINE UROBILINOGEN 0.2 E.U./dL (<1 E.U./dL)
[2017-08-24 06:15] LABS: URINE APPEARANCE CLEAR (CLEAR); URINE COLOR YELLOW (YELLOW)
[2017-08-24 06:29] LABS: BARBITURATES, UR NEGATIVE (NEGATIVE); BENZODIAZEPINES, UR NEGATIVE (NEGATIVE); OPIATES, UR NEGATIVE (NEGATIVE); PHENCYCLIDINE, UR NEGATIVE (NEGATIVE)
--- NOTE | 2017-08-24 07:23 | ED PDOC ---
Physical Exam Vital Signs Reviewed: Yes Vital Signs Temp Pulse Resp BP Pulse Ox 08/24/17 07:24 98 F 79 20 129/74 97 08/24/17 03:46 98.2 F 60 17 147/67 100 Temperature: Afebrile Blood Pressure: Normal Pulse: Regular Respiratory Rate: Normal Appearance: Positive for: Well-Appearing, Non-Toxic, Comfortable, Other ( resting in bed, alert/awake, NAD) Pain Distress: None - Systems Exam Head: Present: Atraumatic, Normocephalic Pupils: Present: PERRL Extroacular Muscles: Present: EOMI Conjunctiva: Present: Normal Ears: Present: Normal Mouth: Present: Moist Mucous Membranes, Normal Teeth Pharnyx: Present: Normal Nose (External): Present: Atraumatic Neck: Present: Normal Range of Motion, Trachea Midline. No: MIDLINE TENDERNESS Respiratory/Chest: Present: Clear to Auscultation, Good Air Exchange Cardiovascular: Present: Regular Rate and Rhythm, Normal S1, S2. No: Murmurs Abdomen: Present: Normal Bowel Sounds Back: Present: Normal Inspection Upper Extremity: Present: Normal Inspection, Normal ROM, NORMAL PULSES Lower Extremity: Present: Normal Inspection, NORMAL PULSES Neurological: Present: GCS=15, CN II-XII Intact Skin: Present: Warm Psychiatric: Present: Alert Medical Decision Making ED Course and Treatment: 08/24/17 07:02 Patient signed out to me by Dr. Go. PT IS MEDICALLY CLEARED FOR PSYCH EVAL ; Awaiting transfer to [facility] ([place]) pending acceptance at geriatric psych unit. 08/24/17 09:05 Crisis counselor at bedside. Patient's also at bedside and agrees with plan to admit/transfer to geriatric psych unit for further psych care. PES Crisis counselor wants patient admitted to Dr. Salcido for further treatment. 08/24/17 09:14 pt is currently stable, baseline mental status is in agreement with treatment plan and pt's disposition Re-evaluation Time: 09:05 Reassessment Condition: Unchanged - Lab Interpretations Lab Results: 08/24/17 04:13 08/24/17 04:13 Lab Results 08/24/17 05:35: Urine Opiates Screen Negative, Urine Methadone Screen Negative, Ur Barbiturates Screen Negative, Ur Phencyclidine Scrn Negative, Ur Amphetamines Screen Negative, U Benzodiazepines Scrn Negative, U Oth Cocaine Metabols Negative, U Cannabinoids Screen Negative 08/24/17 05:35: Urine Color Yellow, Urine Appearance Clear, Urine pH 6.0, Ur Specific [place] 1.010, Urine Protein Negative, Urine Glucose (UA) Negative, Urine Ketones Negative, Urine Blood Negative, Urine Nitrate Negative, Urine Bilirubin Negative, Urine Urobilinogen 0.2, Ur Leukocyte Esterase Negative 08/24/17 04:13: Alcohol, Quantitative < 10 08/24/17 04:13: Salicylates < 1 L, Acetaminophen < 10.0 L 08/24/17 04:13: Sodium 141, Potassium 3.9, Chloride 103, Carbon Dioxide 27, Anion Gap 15, BUN 26 H, Creatinine 0.8, Est GFR ( Amer) > 60, Est GFR ( Non-Af Amer) > 60, Random Glucose 80, Calcium 9.5, Total Bilirubin 0.3, AST 27, ALT 35, Alkaline Phosphatase 57, Total Protein 6.6, Albumin 3.9, Globulin 2.7, Albumin/Globulin Ratio 1.4 08/24/17 04:13: WBC 7.0 D, RBC 4.05, Hgb 11.7 L, Hct 35.7 L, MCV 88.1, MCH 28.9 , MCHC 32.8, RDW 13.2, Plt Count 222, MPV 9.7, Gran % 39.4 L, Lymph % (Auto) 49.9 H, [place] % (Auto) 8.0 H, Eos % (Auto) 2.0, Baso % (Auto) 0.7, Gran # 2.76, Lymph # (Auto) 3.5 H, [place] # (Auto) 0.6, Eos # (Auto) 0.1, Baso # (Auto) 0.05 I have reviewed the lab results: Yes Interpretation: All labs normal - RAD Interpretation Radiology Orders: 08/24/17 03:37 CHEST PORTABLE [RAD] Stat - Medication Orders Current Medication Orders: Sodium Chloride (Sodium Chloride 0.9%) 1,000 mls @ 1,000 mls/hr IV .Q1H [facility] Last Admin: 08/24/17 07:40 Dose: - Scribe Statement The provider has reviewed the documentation as recorded by the Scribe Tapan Jack All medical record entries made by the Scribe were at my direction and personally dictated by me. I have reviewed the chart and agree that the record accurately reflects my personal performance of the history, physical exam, medical decision making, and the department course for this patient. I have also personally directed, reviewed, and agree with the discharge instructions and disposition. Disposition/Present on Arrival - Present on Arrival Any Indicators Present on Arrival: No History of DVT/PE: No History of Uncontrolled Diabetes: No Urinary Catheter: No History of Decub. Ulcer: No History Surgical Site Infection Following: None - Disposition Have Diagnosis and Disposition been Completed?: Yes Diagnosis: Dementia, unspecified, with behavioral disturbance Disposition: HOSPITALIZED Disposition Time: 09:10 Patient Plan: Admission Condition: STABLE
--- NOTE | 2017-08-24 09:04 | RAD ---
HISTORY: pes COMPARISON: 08/16/2017 FINDINGS: LUNGS: No active pulmonary disease. PLEURA: No significant pleural effusion identified, no pneumothorax apparent. CARDIOVASCULAR: Normal. OSSEOUS STRUCTURES: No significant abnormalities. VISUALIZED UPPER ABDOMEN: Normal. OTHER FINDINGS: None. IMPRESSION: No active disease.
[2017-08-24 09:13] VITALS: O2SAT 97
[2017-08-24] MEDS ORDERED: Magnesium Hydroxide Susp 30 ml UD PO PRN (10:18)
[2017-08-24] MEDS ORDERED: Alum-Mag Hydrox-Simethicone Susp (30 mL) PO PRN (10:18)
--- NOTE | 2017-08-24 11:07 | PCM.BM ---
<Lambert Pedroza - Last Filed: 08/24/17 11:05> Treatment Plan Problems - Problems identified on initial assessmt Altered Thought Process Date Initiated: 08/24/17 Time Initiated: 11:06 Assessment reference: NA Status: Active Priority: 1 Aggressive Behavior Date Initiated: 08/24/17 Time Initiated: 11:06 Assessment reference: NA Status: Active Priority: 2 Altered Sleep Patterns Date Initiated: 08/24/17 Time Initiated: 11:06 Assessment reference: NA Status: Active Priority: 3 Treatment assets and liabiliti Patient Assests: good support system Patient Liabilities: imparied memory - Milieu Protocol Maintain good personal hygiene: daily Encourage regular showers, daily Remind patient to perform daily oral care, daily Assist patient to perform ADL's Maintain personal safety: every shift Educate patient to report safety concerns to staff, every shift Monitor environment for contraband/sharps Medication safety: Monitor for expected outcome, potential side effects: every shift, Assess barriers to learning: every shift, Assess readiness for medication education: every shift Discharge/Continuing Care - Discharge Discharge Criteria: Tolerates medication w/o severe side effects, Free of agitation, Normal sleep pattern <Ivone Valenzuela - Last Filed: 08/25/17 10:45> Family Contact Family involvement: Family/SO is involved Family contact: Patient agrees to contact Family contact name: Miles Glover (spouse) [phone] Family contacted how many times per week?: 2 <Toshia Arceo - Last Filed: 08/25/17 13:49> - Diagnosis (1) Dementia, unspecified, with behavioral disturbance Status: Acute Interventions: Neuro consult 1:1 if necessary for patient safety Frequent observation Provide safe environment Pt will be seen by medical team as needed Medications will be confirmed and resumed Additional consultation by specialists as needed Lab work as needed 08/25/17 13:47
--- NOTE | 2017-08-24 11:47 | CARD ---
APPROVED REPORT EKG Measurement Heart [id number] KS [id number] <Conclusion> Normal sinus rhythm Normal ECG
[2017-08-25 08:22] LABS: GLUCOSE,FASTING 82 mg/dL (65-110); HDL CHOLESTEROL 75 mg/dL (29-60)
[2017-08-25 08:33] LABS: LDL CHOLESTEROL 89 mg/dL (0-129)
[2017-08-25 08:40] LABS: FREE T4 0.85 ng/dL (0.78-2.19)
--- NOTE | 2017-08-25 14:21 | PCM.PSYCH ---
Initial Psychiatric Evaluation - Initial Psychiatric Evaluation Type of Admission: Voluntary Chief Complaint (in patient's own words): "I do not know why I am here" Patient's Reaction to Hospitalization: Patient is a 62 year old white female who was admitted for increased agitation and confusion. She is well into Alzheimer's Dementia, lives with her . She was combative with him prior to admission, which is a new behavior. She additionally had not been eating or sleeping as she had been prior to admission. Patient is pleasant and cooperative, tries to give me answers to questions and laughs when she cannot, is able to say she is enjoying being around others while on the unit. She is not able to remember even with reminding where she is. History of Present Illness and Precipitating Events: Patient is a 62 year old female admitted with behavioral issues related to her diagnosis of Alzheimers. Her is her sole geothermal field technician. He works 5AM to 2PM. He leaves 2 sandwiches for her which she normally eats on her own. She does not wander nor does she cook on her own. They go out to [employer] at night for dinner. She needs help with her dressing and ADL's. She has grown children who do not live close. She legally has no guardian or POA. Patient is very impaired by the disease with severe deficits in her manager long term care and short term memory. She has no ability to recall, is not able to remember her 's, or children's names. Is able to tell me only that she graduated from [employer], and that she and her go out for dinner every night but not where. Call to Patient's for collateral Miles Glover [phone], he was at work so time was limited and he was upset that he evidently had asked that Dr Oviedo be consulted but this had not been ordered so the order was put in. was upset by the newest changes in his 's behavior, their children are evidently critical of how he is handling this situation but he repeats several times that he is trying to do the best he can. Goal of hospitalization in his view is to have Dr Oviedo involved to stabilize the patient as she is going to follow with him outpatient. I discussed with the the need for him to have power of coal tram driver or guardianship as patient is clearly lacking capacity. SW will follow for further collateral and possible referrals to caregiver support groups for family members dealing with loved ones with Alzheimers. Current Medications: Active Medications Generic Name Dose Route Start Last Admin Trade Name Freq PRN Reason Stop Dose Admin Acetaminophen 650 mg 08/24/17 10:18 Tylenol 325mg Tab PO Q4 PRN Pain, Mild (1-3) Al Hydrox/Mg Hydrox/Simethicone 30 ml 08/24/17 10:18 Maalox Plus 30 Ml PO DAILY PRN Upset Stomach Donepezil HCl 5 mg 08/24/17 22:00 08/24/17 21:09 Aricept PO 5 mg HS [facility] Administration Haloperidol 0.25 mg 08/24/17 11:44 08/24/17 22:40 Haldol PO 0.25 mg HS PRN Administration Insomnia Protocol Haloperidol 0.25 mg 08/24/17 11:45 08/25/17 09:06 Haldol PO 0.25 mg [facility] Administration Protocol Magnesium Hydroxide 30 ml 08/24/17 10:18 Milk Of Magnesia PO DAILY PRN Constipation Current Medications Acetaminophen (Tylenol 325mg Tab) 650 mg PO Q4 PRN PRN Reason: Pain, Mild (1-3) Al Hydrox/Mg Hydrox/Simethicone (Maalox Plus 30 Ml) 30 ml PO DAILY PRN PRN Reason: Upset Stomach Donepezil HCl (Aricept) 5 mg PO HS [facility] Last Admin: 08/24/17 21:09 Dose: 5 mg Haloperidol (Haldol) 0.25 mg PO HS PRN; Protocol PRN Reason: Insomnia Last Admin: 08/24/17 22:40 Dose: 0.25 mg Haloperidol (Haldol) 0.25 mg PO [facility] PRN Reason: Protocol Last Admin: 08/25/17 09:06 Dose: 0.25 mg Lorazepam (Ativan) 0.5 mg PO TID PRN; Protocol PRN Reason: Agitation Lorazepam (Ativan) 0.5 mg IM Q6H PRN; Protocol PRN Reason: Agitation Magnesium Hydroxide (Milk Of Magnesia) 30 ml PO DAILY PRN PRN Reason: Constipation Past Psychiatric History - Past Psychiatric History Previous Treatment History: None History of Abuse: Unknown History of ETOH/Drug Use: Unknown History of Family Illness: Unknown Pertinent Medical Hx (Current Medical&Sleep Prob, Allergies): Allergies Allergy/AdvReac Type Severity Reaction Status Date / Time No Known Allergies Allergy Verified 08/24/17 03:30 Donepezil [Aricept] 1 tab PO DAILY 08/16/17 Review of Systems - Review of Systems Systems not reviewed;Unavailable: Dementia - EENT Eyes: As Per HPI Ears: As Per HPI Nose/Mouth/Throat: As Per HPI - Breasts Breasts: As Per HPI - Cardiovascular Cardiovascular: As Per HPI - Respiratory Respiratory: As Per HPI - Gastrointestinal Gastrointestinal: As Per HPI - Genitourinary Genitourinary: As Per HPI - Reproductive: Female Reproductive:Female: As Per HPI - Menstruation Menstruation: As Per HPI - Musculoskeletal Musculoskeletal: As Par HPI - Integumentary Integumentary: As Per HPI - Neurological Neurological: As Per HPI - Psychiatric Psychiatric: As Per HPI - Endocrine Endocrine: As Per HPI - Hematologic/Lymphatic Hematologic: As Per HPI Mental Status Examination - Personal Presentation Personal Presentation: Looks stated age - Affect Affect: Flat - Motor Activity Motor Activity: Calm - Reliability in Providing Information Reliability in Providing Information: Poor, due to cognitve impairment Additional comments: Patient is only able to tell me her name, does not know where she is, the josh, the date, the president, her husbands name. - Speech Speech: Disorganized Additional comments: Has difficulty with complete thoughts. - Mood Mood: Neutral - Hallucinations/Delusions Additional comments: Denies hallucinations, delusions, or paranoia. - Obsessions/Compulsions Obsessions: No Compulsions: No - Cognitive Functions Orientation: Person Sensorium: Alert - Risk Risk: Falls, Diminished functioning - Strength & Assets Inventory Strength & Assets Inventory: Family support, Cooperative - Limitations Limitations: Decreased memory, recent Additional comments: Severe memory deficits noted. DSM 5 DX - DSM 5 DSM 5 Diagnosis: Dementia with behavioral disturbance - Recommended/Plan of Treatment Treatment Recommendations and Plan of Treatment: Neuro consult Close observation for safety Assistance with ADL's, meals, and direction as needed Medications Ativan, Haldol to help with symptoms as needed Projected ELOS: 08/29/2017 Prognosis: Poor Discharge Plan and Discharge Criteria: Patient's behavior will improve, patient will have improved sleep - Smoking Cessation Smoking Cessation Initiated: No Reason for not providing: Not a smoker
--- NOTE | 2017-08-25 17:32 | CP.PCM.CON ---
<Apryl Molina - Last Filed: 08/25/17 17:53> History of Present Illness - History of Present Illness History of Present Illness: PGY-[address] Oviedo Neurology Consult: Dementia Ms Barbara Glover, 62F, with PMHx sig for Falls and dementia (baseline: can self feed but cannot change clothes/shower), recent sacral fractures, was brought in from home by for worsening of dementia. states that pt experience increase agitation and confusion, and became very violent with him. Pt was admitted to in patient psych unit VS Stable. CBC and CMP unremarkable. U/A negative. UDS and RPR negative EKG, NSR at [address]-segment elevations or depressions, no T-wave inversions, normal intervals. Head CT (08/16/17): No acute intracranial abnomrality. Mild chronic microangiopathic changes and moderate age related global parenchmal volume loss Lumbar CT (08/16/17): Acute non-displaces R sacral ala fracture. Degenerative disc disease L4-5 with retrolithesis 3mm on L4 on L5 Moderate neural foraminal stenosis without spinal cancal stenosis Denies LOC, shaking, CP, SOB, N/V/D/C, dysuria, urinary frequency. Travel from [place] during and came back to [place] around [place]. Denies recent change in med or recent sickness. (+) recent hospital stay for fall and AMS. PMH Dementia. Hx Fall PSH ORIF Humerus, L FH Dementia in family history. Mom has diabetes SH , living with at home. Denies smoking, drink, drugs All NKDA Med Donepezil 5mg daily at 1pm PMD: Dr Mathew Neurologist: Dr Casi Pritchett, [facility]. Pt did not follow up for a while already , Mr Glover, (m) [phone] Past Patient History - Infectious Disease Hx of Infectious Diseases: None - Past Social History Smoking Status: Never Smoked - CARDIAC Hx Cardiac Disorders: No (pt denies) - PULMONARY Hx Respiratory Disorders: No - NEUROLOGICAL Hx Neurological Disorder: No Hx Alzheimer's Disease: Yes (dx 2011) - HEENT Hx HEENT Problems: Yes (eyeglasses) - RENAL Hx Chronic Kidney Disease: No - ENDOCRINE/METABOLIC Hx Endocrine Disorders: No - HEMATOLOGICAL/ONCOLOGICAL Hx Blood Disorders: No - INTEGUMENTARY Hx Dermatological Problems: No - MUSCULOSKELETAL/RHEUMATOLOGICAL Hx Falls: Yes (2012 and 2x's today) - GASTROINTESTINAL Hx Gastrointestinal Disorders: No - GENITOURINARY/GYNECOLOGICAL Hx Genitourinary Disorders: No - PSYCHIATRIC Hx Substance Use: No - SURGICAL HISTORY Hx Surgeries: No - ANESTHESIA Hx Anesthesia: No Hx Anesthesia Reactions: No Hx Malignant Hyperthermia: No Meds Allergies/Adverse Reactions: Allergies Allergy/AdvReac Type Severity Reaction Status Date / Time No Known Allergies Allergy Verified 08/26/17 00:16 - Medications Medications: Current Medications Acetaminophen (Tylenol 325mg Tab) 650 mg PO Q4 PRN PRN Reason: Pain, Mild (1-3) Al Hydrox/Mg Hydrox/Simethicone (Maalox Plus 30 Ml) 30 ml PO DAILY PRN PRN Reason: Upset Stomach Donepezil HCl (Aricept) 5 mg PO HS [facility] Last Admin: 08/24/17 21:09 Dose: 5 mg Haloperidol (Haldol) 0.25 mg PO HS PRN; Protocol PRN Reason: Insomnia Last Admin: 08/24/17 22:40 Dose: 0.25 mg Haloperidol (Haldol) 0.25 mg PO [facility] PRN Reason: Protocol Last Admin: 08/25/17 09:06 Dose: 0.25 mg Lorazepam (Ativan) 0.5 mg PO TID PRN; Protocol PRN Reason: Agitation Lorazepam (Ativan) 0.5 mg IM Q6H PRN; Protocol PRN Reason: Agitation Magnesium Hydroxide (Milk Of Magnesia) 30 ml PO DAILY PRN PRN Reason: Constipation Physical Exam - Constitutional Appears: No Acute Distress - Head Exam Head Exam: ATRAUMATIC, NORMAL INSPECTION, NORMOCEPHALIC - Eye Exam Eye Exam: EOMI, Normal appearance, PERRL - ENT Exam ENT Exam: Mucous Membranes Moist - Neck Exam Additional comments: supple - Respiratory Exam Respiratory Exam: Clear to Auscultation Bilateral, NORMAL BREATHING PATTERN - Cardiovascular Exam Cardiovascular Exam: REGULAR RHYTHM, +S1, +S2 - GI/Abdominal Exam GI & Abdominal Exam: Normal Bowel Sounds, Soft. absent: Tenderness - Extremities Exam Extremities exam: Negative for: calf tenderness - Neurological Exam Neurological exam: Alert, CN II-XII Intact Additional comments: AAO x 2 Recall 0/3 Motor: move all extremites sensory: grossly intact limited by incoorperation Though process: disorganized. follow 1-step command only - Psychiatric Exam Psychiatric exam: Anxious - Skin Skin Exam: Dry, Warm Results - Vital Signs Recent Vital Signs: Last Vital Signs Temp 98.3 F 08/25/17 07:39 Pulse 60 08/25/17 07:39 Resp 17 08/25/17 07:39 BP 125/68 08/25/17 07:39 Pulse Ox 97 08/24/17 08:44 - Labs Result Diagrams: 08/24/17 04:13 08/24/17 04:13 Labs: Laboratory Results - last 24 hr 08/25/17 08/25/17 08/25/17 07:45 07:45 07:45 Fasting Glucose 82 Triglycerides 52 Cholesterol 193 LDL Cholesterol Direct 89 HDL Cholesterol 75 H Free T4 0.85 TSH 3rd Generation 1.40 RPR Nonreactive Assessment & Plan - Assessment and Plan (Free Text) Plan: Ms Barbara Glover, 62F, with PMHx sig for dementia, was brought in from home for agitation and violent behavior. HR 60. Occasional bradycardia was observed from last hospital stay [address] (08/16/17): No acute intracranial abnomrality. Mild chronic microangiopathic changes and moderate age related global parenchmal volume loss, most prominent at frontal areas. Physical exam is significant for AAOx2. Her though process was disorganized and she is only able to follow 1-step command only. Dementia with behavioral component, baseline need ADL assist with change clothes /shower Brain Atropy most prominent at frontal area - Continue donepazil 5mg (home med) in AM to stay active in daytime - build mental exercises during daily routine - follow up with neurologist outpatient for further eval. - Discussed about risk/benefit and side effect of donepazil and possibly nemanda. Especially effect on bradycardia - thiamine 100mg daily; CoQ 200mg daily; turmeric curcumin 1000mg qAM s/r/d/w Dr. Oviedo <Lorenzo Oviedo - Last Filed: 08/26/17 10:33> Meds - Medications Medications: Current Medications Acetaminophen (Tylenol 325mg Tab) 650 mg PO Q4 PRN PRN Reason: Pain, Mild (1-3) Al Hydrox/Mg Hydrox/Simethicone (Maalox Plus 30 Ml) 30 ml PO DAILY PRN PRN Reason: Upset Stomach Donepezil HCl (Aricept) 5 mg PO DAILY [facility] Last Admin: 08/26/17 09:10 Dose: 5 mg Haloperidol (Haldol) 0.25 mg PO HS PRN; Protocol PRN Reason: Insomnia Last Admin: 08/25/17 23:41 Dose: 0.25 mg Haloperidol (Haldol) 0.25 mg PO [facility] PRN Reason: Protocol Last Admin: 08/26/17 09:10 Dose: 0.25 mg Lorazepam (Ativan) 0.5 mg PO TID PRN; Protocol PRN Reason: Agitation Lorazepam (Ativan) 0.5 mg IM Q6H PRN; Protocol PRN Reason: Agitation Last Admin: 08/25/17 19:04 Dose: 0.5 mg Magnesium Hydroxide (Milk Of Magnesia) 30 ml PO DAILY PRN PRN Reason: Constipation Thiamine HCl (Vitamin B1 Tab) 100 mg PO DAILY [facility] Last Admin: 08/26/17 09:11 Dose: 100 mg Results - Vital Signs Recent Vital Signs: Last Vital Signs Temp 97.1 F L 08/26/17 07:14 Pulse 52 L 08/26/17 07:14 Resp 20 08/26/17 07:14 BP 126/73 08/26/17 07:14 Pulse Ox 97 08/24/17 08:44 - Labs Result Diagrams: 08/24/17 04:13 08/24/17 04:13 Labs: Laboratory Results - last 24 hr 08/25/17 08/25/17 07:45 13:00 Vitamin B12 860 RPR Nonreactive Attending/Attestation - Attestation I have personally seen and examined this patient.: Yes I have fully participated in the care of the patient.: Yes I have reviewed all pertinent clinical information: Yes
--- NOTE | 2017-08-25 23:51 | CON ---
DATE: HISTORY OF PRESENT ILLNESS: Patient is 62 years old, brought in by because of being agitated, increasingly forgetful, so she was admitted because of dementia with agitation. She has significant past medical history for recent admission for fall on 08/16, has initial workup done, and according to 's request, was sent home with home PT. PAST MEDICAL HISTORY: Significant for dementia. ALLERGIES: SHE IS NOT ALLERGIC TO ANY MEDICATION. MEDICATION AT HOME: She is just on Aricept. FAMILY HISTORY: Strongly positive for dementia. SOCIAL HISTORY: She is , lives with her . Denies smoking, drinking or alcohol use. REVIEW OF SYSTEMS: Consistent with being forgetful, confused, disoriented. Agitated at times. PHYSICAL EXAMINATION: VITAL SIGNS: She is afebrile. Pulse 60, respirations 17, blood pressure 125/60. LUNGS: Bilateral good fair air flow. No rhonchi or crackle. HEART: S1, S2 audible. ABDOMEN: Soft, nontender. No rebound, no guarding. NEUROLOGIC: She is awake, alert, forgetful, unable carry intelligent conversation. Had scattered thoughts, although she is ambulatory. LABORATORY EXAMINATION: WBC 7.0, hemoglobin 11.7, hematocrit 35.7, platelet of 222. Chemistry: Cholesterol 193, LDL is 89, HDL is 75. Urinalysis is unremarkable. Urine tox is negative. ASSESSMENT AND PLAN: 1. Dementia with agitation. 2. Status post fall because of poor balance. PLAN: She has been started on Aricept. I will order for B12 level and I will also start small dose of Namenda. Psych evaluation has been done. Input noted and appreciated. We will discuss with patient's family and . Patricia Andrea MD
[2017-08-26 07:16] VITALS: RESP 20
--- NOTE | 2017-08-26 10:14 | CP.PCM.PN ---
<Apryl Molina - Last Filed: 08/26/17 10:12> Subjective - Date & Time of Evaluation Date of Evaluation: 08/26/17 Time of Evaluation: 09:00 - Subjective Subjective: Neurology PGY-[address] Oviedo Pt thought that she is at home. Denies acute distress Objective - Vital Signs/Intake and Output Vital Signs (last 24 hours): Temp Pulse Resp BP Pulse Ox 97.1 F L 52 L 20 126/73 97 08/26/17 07:14 08/26/17 07:14 08/26/17 07:14 08/26/17 07:14 08/24/17 08:44 - Medications Medications: Current Medications Acetaminophen (Tylenol 325mg Tab) 650 mg PO Q4 PRN PRN Reason: Pain, Mild (1-3) Al Hydrox/Mg Hydrox/Simethicone (Maalox Plus 30 Ml) 30 ml PO DAILY PRN PRN Reason: Upset Stomach Donepezil HCl (Aricept) 5 mg PO DAILY [facility] Last Admin: 08/26/17 09:10 Dose: 5 mg Haloperidol (Haldol) 0.25 mg PO HS PRN; Protocol PRN Reason: Insomnia Last Admin: 08/25/17 23:41 Dose: 0.25 mg Haloperidol (Haldol) 0.25 mg PO [facility] PRN Reason: Protocol Last Admin: 08/26/17 09:10 Dose: 0.25 mg Lorazepam (Ativan) 0.5 mg PO TID PRN; Protocol PRN Reason: Agitation Lorazepam (Ativan) 0.5 mg IM Q6H PRN; Protocol PRN Reason: Agitation Last Admin: 08/25/17 19:04 Dose: 0.5 mg Magnesium Hydroxide (Milk Of Magnesia) 30 ml PO DAILY PRN PRN Reason: Constipation Thiamine HCl (Vitamin B1 Tab) 100 mg PO DAILY [facility] Last Admin: 08/26/17 09:11 Dose: 100 mg - Constitutional Appears: No Acute Distress - Head Exam Head Exam: ATRAUMATIC, NORMAL INSPECTION, NORMOCEPHALIC - Eye Exam Eye Exam: EOMI, Normal appearance, PERRL. absent: Scleral icterus Pupil Exam: NORMAL ACCOMODATION - ENT Exam ENT Exam: Mucous Membranes Moist - Respiratory Exam Respiratory Exam: Clear to Ausculation Bilateral, NORMAL BREATHING PATTERN - Cardiovascular Exam Cardiovascular Exam: REGULAR RHYTHM, +S1, +S2. absent: Murmur - Neurological Exam Neurological Exam: Alert, Awake, CN II-XII Intact Additional comments: AAO x 1 to person Recall 0/3 Motor: move all extremites sensory: grossly intact limited by incoorperation Though process: disorganized. follow 1-step command only gait: slightly wide step gait, on non-slip socks Assessment and Plan - Assessment and Plan (Free Text) Plan: Ms Barbara Glover, 62F, with PMHx sig for dementia, was brought in from home for agitation and violent behavior. HR 60. Occasional bradycardia was observed from last hospital stay [address] (08/16/17): No acute intracranial abnomrality. Mild chronic microangiopathic changes and moderate age related global parenchmal volume loss, most prominent at frontal areas. Physical exam is significant for AAOx2. Her though process was disorganized and she is only able to follow 1-step command only. Dementia with behavioral component, baseline need ADL assist with change clothes /shower Brain Atropy most prominent at frontal area - Continue donepazil 5mg (home med) in AM to stay active in daytime - build mental exercises during daily routine - follow up with neurologist outpatient for further eval. - Discussed about risk/benefit and side effect of donepazil and possibly nemanda. Especially effect on bradycardia - thiamine 100mg daily; CoQ 200mg daily; turmeric curcumin 1000mg qAM - Consider seroquel 12.5mg HS PRN agitation, pending psych agreement s/r/d/w Dr. Oviedo <Lorenzo Oviedo - Last Filed: 08/26/17 10:34> Objective - Vital Signs/Intake and Output Vital Signs (last 24 hours): Temp Pulse Resp BP Pulse Ox 97.1 F L 52 L 20 126/73 97 08/26/17 07:14 08/26/17 07:14 08/26/17 07:14 08/26/17 07:14 08/24/17 08:44 - Medications Medications: Current Medications Acetaminophen (Tylenol 325mg Tab) 650 mg PO Q4 PRN PRN Reason: Pain, Mild (1-3) Al Hydrox/Mg Hydrox/Simethicone (Maalox Plus 30 Ml) 30 ml PO DAILY PRN PRN Reason: Upset Stomach Donepezil HCl (Aricept) 5 mg PO DAILY [facility] Last Admin: 08/26/17 09:10 Dose: 5 mg Haloperidol (Haldol) 0.25 mg PO HS PRN; Protocol PRN Reason: Insomnia Last Admin: 08/25/17 23:41 Dose: 0.25 mg Haloperidol (Haldol) 0.25 mg PO [facility] PRN Reason: Protocol Last Admin: 08/26/17 09:10 Dose: 0.25 mg Lorazepam (Ativan) 0.5 mg PO TID PRN; Protocol PRN Reason: Agitation Lorazepam (Ativan) 0.5 mg IM Q6H PRN; Protocol PRN Reason: Agitation Last Admin: 08/25/17 19:04 Dose: 0.5 mg Magnesium Hydroxide (Milk Of Magnesia) 30 ml PO DAILY PRN PRN Reason: Constipation Thiamine HCl (Vitamin B1 Tab) 100 mg PO DAILY [facility] Last Admin: 08/26/17 09:11 Dose: 100 mg Attending/Attestation - Attestation I have personally seen and examined this patient.: Yes I have fully participated in the care of the patient.: Yes I have reviewed all pertinent clinical information, including history, physical exam and plan: Yes
--- NOTE | 2017-08-26 14:30 | PCM.PYCHPN ---
Psychiatric Progress Note - Psychiatric Progress Note Patient seen today, length of contact: 30 Patient Chief Complaint: "I am not sure" Problems Identified/Issues Discussed: Patient is a 62 year old white female who was admitted for increased agitation and confusion. She is well into Alzheimer's Dementia, lives with her . She was combative with him prior to admission, which is a new behavior. She additionally had not been eating or sleeping as she had been prior to admission. Patient is pleasant and cooperative, tries to give me answers to questions and laughs when she cannot, is able to say she is enjoying being around others while on the unit. She is not able to remember even with reminding where she is. Patient today is smiling but seems more anxious and confused. Evidently yesterday she became agitated towards the evening, and was so upset while was visiting that he had to leave early. She was given prn Ativan with good result. She seems to be soothed when in company of other patients but has no ability to contribute to group or find her way on the unit. Needs almost constant supervision. Phone conference with SW and . Agree to set discharge tomorrow as patient is getting more agitated with the lack of familiarity, will change haldol to seroquel sussy to see if this is more helpful tp patient. in agreement with this plan as patient has also been seen by Dr Oviedo. Will meet with at discharge to go over meds, discharge plans, and offer some options for caregiver support. Medical Problems: Alzheimers Diagnostic Results: Temp Pulse Resp BP Pulse Ox 97.1 F L 52 L 20 126/73 97 08/26/17 07:14 08/26/17 07:14 08/26/17 07:14 08/26/17 07:14 08/24/17 08:44 Laboratory Tests 08/24/17 08/24/17 08/24/17 04:13 04:13 04:13 WBC 7.0 D RBC 4.05 Hgb 11.7 L Hct 35.7 L MCV 88.1 MCH 28.9 MCHC 32.8 RDW 13.2 Plt Count 222 MPV 9.7 Gran % 39.4 L Lymph % (Auto) 49.9 H [place] % (Auto) 8.0 H Eos % (Auto) 2.0 Baso % (Auto) 0.7 Gran # 2.76 Lymph # (Auto) 3.5 H [place] # (Auto) 0.6 Eos # (Auto) 0.1 Baso # (Auto) 0.05 Sodium 141 Potassium 3.9 Chloride 103 Carbon Dioxide 27 Anion Gap 15 BUN 26 H Creatinine 0.8 Est GFR ( Amer) > 60 Est GFR (Non-Af Amer) > 60 Random Glucose 80 Fasting Glucose Calcium 9.5 Total Bilirubin 0.3 AST 27 ALT 35 Alkaline Phosphatase 57 Total Protein 6.6 Albumin 3.9 Globulin 2.7 Albumin/Globulin Ratio 1.4 Triglycerides Cholesterol LDL Cholesterol Direct HDL Cholesterol Vitamin B12 Free T4 TSH 3rd Generation Urine Color Urine Appearance Urine pH Ur Specific [place] Urine Protein Urine Glucose (UA) Urine Ketones Urine Blood Urine Nitrate Urine Bilirubin Urine Urobilinogen Ur Leukocyte Esterase Salicylates < 1 L Urine Opiates Screen Urine Methadone Screen Acetaminophen < 10.0 L Ur Barbiturates Screen Ur Phencyclidine Scrn Ur Amphetamines Screen U Benzodiazepines Scrn U Oth Cocaine Metabols U Cannabinoids Screen Alcohol, Quantitative RPR 08/24/17 08/24/17 08/24/17 04:13 05:35 05:35 WBC RBC Hgb Hct MCV MCH MCHC RDW Plt Count MPV Gran % Lymph % (Auto) [place] % (Auto) Eos % (Auto) Baso % (Auto) Gran # Lymph # (Auto) [place] # (Auto) Eos # (Auto) Baso # (Auto) Sodium Potassium Chloride Carbon Dioxide Anion Gap BUN Creatinine Est GFR ( Amer) Est GFR (Non-Af Amer) Random Glucose Fasting Glucose Calcium Total Bilirubin AST ALT Alkaline Phosphatase Total Protein Albumin Globulin Albumin/Globulin Ratio Triglycerides Cholesterol LDL Cholesterol Direct HDL Cholesterol Vitamin B12 Free T4 TSH 3rd Generation Urine Color Yellow Urine Appearance Clear Urine pH 6.0 Ur Specific [place] 1.010 Urine Protein Negative Urine Glucose (UA) Negative Urine Ketones Negative Urine Blood Negative Urine Nitrate Negative Urine Bilirubin Negative Urine Urobilinogen 0.2 Ur Leukocyte Esterase Negative Salicylates Urine Opiates Screen Negative Urine Methadone Screen Negative Acetaminophen Ur Barbiturates Screen Negative Ur Phencyclidine Scrn Negative Ur Amphetamines Screen Negative U Benzodiazepines Scrn Negative U Oth Cocaine Metabols Negative U Cannabinoids Screen Negative Alcohol, Quantitative < 10 RPR 08/25/17 08/25/17 08/25/17 07:45 07:45 07:45 WBC RBC Hgb Hct MCV MCH MCHC RDW Plt Count MPV Gran % Lymph % (Auto) [place] % (Auto) Eos % (Auto) Baso % (Auto) Gran # Lymph # (Auto) [place] # (Auto) Eos # (Auto) Baso # (Auto) Sodium Potassium Chloride Carbon Dioxide Anion Gap BUN Creatinine Est GFR ( Amer) Est GFR (Non-Af Amer) Random Glucose Fasting Glucose 82 Calcium Total Bilirubin AST ALT Alkaline Phosphatase Total Protein Albumin Globulin Albumin/Globulin Ratio Triglycerides 52 Cholesterol 193 LDL Cholesterol Direct 89 HDL Cholesterol 75 H Vitamin B12 Free T4 0.85 TSH 3rd Generation 1.40 Urine Color Urine Appearance Urine pH Ur Specific [place] Urine Protein Urine Glucose (UA) Urine Ketones Urine Blood Urine Nitrate Urine Bilirubin Urine Urobilinogen Ur Leukocyte Esterase Salicylates Urine Opiates Screen Urine Methadone Screen Acetaminophen Ur Barbiturates Screen Ur Phencyclidine Scrn Ur Amphetamines Screen U Benzodiazepines Scrn U Oth Cocaine Metabols U Cannabinoids Screen Alcohol, Quantitative RPR Nonreactive 08/25/17 13:00 WBC RBC Hgb Hct MCV MCH MCHC RDW Plt Count MPV Gran % Lymph % (Auto) [place] % (Auto) Eos % (Auto) Baso % (Auto) Gran # Lymph # (Auto) [place] # (Auto) Eos # (Auto) Baso # (Auto) Sodium Potassium Chloride Carbon Dioxide Anion Gap BUN Creatinine Est GFR ( Amer) Est GFR (Non-Af Amer) Random Glucose Fasting Glucose Calcium Total Bilirubin AST ALT Alkaline Phosphatase Total Protein Albumin Globulin Albumin/Globulin Ratio Triglycerides Cholesterol LDL Cholesterol Direct HDL Cholesterol Vitamin B12 860 Free T4 TSH 3rd Generation Urine Color Urine Appearance Urine pH Ur Specific [place] Urine Protein Urine Glucose (UA) Urine Ketones Urine Blood Urine Nitrate Urine Bilirubin Urine Urobilinogen Ur Leukocyte Esterase Salicylates Urine Opiates Screen Urine Methadone Screen Acetaminophen Ur Barbiturates Screen Ur Phencyclidine Scrn Ur Amphetamines Screen U Benzodiazepines Scrn U Oth Cocaine Metabols U Cannabinoids Screen Alcohol, Quantitative RPR Medication Change: Yes (Stop haldol, start Seroquel) Medical Record Reviewed: Yes Consults ordered or reviewed: Consult per Dr Oviedo reviewed thank you Mental Status Examination - Cognitive Function Orientation: Person - Mood Mood: Neutral - Affect Affect: Flat - Homicidal Ideation Homicidal Ideation: No Goal/Treatment Plan - Goal/Treatment Plan Progress Toward Problem(s) and Goals/Treatment Plan: Neuro consult Close observation for safety Assistance with ADL's, meals, and direction as needed Medications Ativan, Haldol to help with symptoms as needed
--- NOTE | 2017-08-26 15:59 | PN ---
DATE: SUBJECTIVE: The patient is a 62 years old, seems to be agitated at times, wants to go home, unable to carry any conversation. PHYSICAL EXAMINATION: VITAL SIGNS: Patient is afebrile, pulse 52, respirations 20, blood pressure 126/73. LUNGS: Bilateral fair airflow. No rhonchi or crackles. HEART: S1, S2 audible. ABDOMEN: Soft, nontender. No rebound, no guarding. NEUROLOGIC: She is awake and alert, but confused, disoriented, forgetful. LABORATORY DATA: RPR is negative, urine drug screen is negative. ASSESSMENT: 1. Dementia with agitation. 2. Anxiety disorder. PLAN: Patient will be maintained on medication as recommended by neurologist and psychiatrist. Medically, patient is stable. We will follow up p.r.n. Patricia Andrea MD
[2017-08-26 16:57] VITALS: PULSE 63
[2017-08-27 07:04] VITALS: BP 138/82; TEMP 98.2
--- NOTE | 2017-08-27 13:29 | PCM.PYCHDC ---
Mental Status Examination - Mental Status Examination Orientation: Person Memory: Impaired Mood: Anxious Affect: Constricted Speech: Stammering Attention: Poor Concentration: Poor Language: Word Retrieval Association: Loose Fund of Knowledge: Poor Description of patient's judgement and insight: Poor, patient lacks capacity Psychotic Thoughts and Behaviors: There is nothing in patient observed behavior to indicate that she is suicidal or homicidal Suicidal Ideation: No Current Homicidal Ideation?: No Discharge Summary - Discharge Note Reason for Hospitalization: Patient is a 62 year old white female who was admitted for increased agitation and confusion. She is well into Alzheimer's Dementia, lives with her . She was combative with him prior to admission, which is a new behavior. She additionally had not been eating or sleeping as she had been prior to admission. Patient is pleasant and cooperative, tries to give me answers to questions and laughs when she cannot, is able to say she is enjoying being around others while on the unit. She is not able to remember even with reminding where she is. Laboratory Data: Laboratory Tests 08/24/17 08/24/17 08/24/17 04:13 04:13 04:13 WBC 7.0 D RBC 4.05 Hgb 11.7 L Hct 35.7 L MCV 88.1 MCH 28.9 MCHC 32.8 RDW 13.2 Plt Count 222 MPV 9.7 Gran % 39.4 L Lymph % (Auto) 49.9 H [place] % (Auto) 8.0 H Eos % (Auto) 2.0 Baso % (Auto) 0.7 Gran # 2.76 Lymph # (Auto) 3.5 H [place] # (Auto) 0.6 Eos # (Auto) 0.1 Baso # (Auto) 0.05 Sodium 141 Potassium 3.9 Chloride 103 Carbon Dioxide 27 Anion Gap 15 BUN 26 H Creatinine 0.8 Est GFR ( Amer) > 60 Est GFR (Non-Af Amer) > 60 Random Glucose 80 Fasting Glucose Calcium 9.5 Total Bilirubin 0.3 AST 27 ALT 35 Alkaline Phosphatase 57 Total Protein 6.6 Albumin 3.9 Globulin 2.7 Albumin/Globulin Ratio 1.4 Triglycerides Cholesterol LDL Cholesterol Direct HDL Cholesterol Vitamin B12 Free T4 TSH 3rd Generation Urine Color Urine Appearance Urine pH Ur Specific [place] Urine Protein Urine Glucose (UA) Urine Ketones Urine Blood Urine Nitrate Urine Bilirubin Urine Urobilinogen Ur Leukocyte Esterase Salicylates < 1 L Urine Opiates Screen Urine Methadone Screen Acetaminophen < 10.0 L Ur Barbiturates Screen Ur Phencyclidine Scrn Ur Amphetamines Screen U Benzodiazepines Scrn U Oth Cocaine Metabols U Cannabinoids Screen Alcohol, Quantitative RPR 08/24/17 08/24/17 08/24/17 04:13 05:35 05:35 WBC RBC Hgb Hct MCV MCH MCHC RDW Plt Count MPV Gran % Lymph % (Auto) [place] % (Auto) Eos % (Auto) Baso % (Auto) Gran # Lymph # (Auto) [place] # (Auto) Eos # (Auto) Baso # (Auto) Sodium Potassium Chloride Carbon Dioxide Anion Gap BUN Creatinine Est GFR ( Amer) Est GFR (Non-Af Amer) Random Glucose Fasting Glucose Calcium Total Bilirubin AST ALT Alkaline Phosphatase Total Protein Albumin Globulin Albumin/Globulin Ratio Triglycerides Cholesterol LDL Cholesterol Direct HDL Cholesterol Vitamin B12 Free T4 TSH 3rd Generation Urine Color Yellow Urine Appearance Clear Urine pH 6.0 Ur Specific [place] 1.010 Urine Protein Negative Urine Glucose (UA) Negative Urine Ketones Negative Urine Blood Negative Urine Nitrate Negative Urine Bilirubin Negative Urine Urobilinogen 0.2 Ur Leukocyte Esterase Negative Salicylates Urine Opiates Screen Negative Urine Methadone Screen Negative Acetaminophen Ur Barbiturates Screen Negative Ur Phencyclidine Scrn Negative Ur Amphetamines Screen Negative U Benzodiazepines Scrn Negative U Oth Cocaine Metabols Negative U Cannabinoids Screen Negative Alcohol, Quantitative < 10 RPR 08/25/17 08/25/17 08/25/17 07:45 07:45 07:45 WBC RBC Hgb Hct MCV MCH MCHC RDW Plt Count MPV Gran % Lymph % (Auto) [place] % (Auto) Eos % (Auto) Baso % (Auto) Gran # Lymph # (Auto) [place] # (Auto) Eos # (Auto) Baso # (Auto) Sodium Potassium Chloride Carbon Dioxide Anion Gap BUN Creatinine Est GFR ( Amer) Est GFR (Non-Af Amer) Random Glucose Fasting Glucose 82 Calcium Total Bilirubin AST ALT Alkaline Phosphatase Total Protein Albumin Globulin Albumin/Globulin Ratio Triglycerides 52 Cholesterol 193 LDL Cholesterol Direct 89 HDL Cholesterol 75 H Vitamin B12 Free T4 0.85 TSH 3rd Generation 1.40 Urine Color Urine Appearance Urine pH Ur Specific [place] Urine Protein Urine Glucose (UA) Urine Ketones Urine Blood Urine Nitrate Urine Bilirubin Urine Urobilinogen Ur Leukocyte Esterase Salicylates Urine Opiates Screen Urine Methadone Screen Acetaminophen Ur Barbiturates Screen Ur Phencyclidine Scrn Ur Amphetamines Screen U Benzodiazepines Scrn U Oth Cocaine Metabols U Cannabinoids Screen Alcohol, Quantitative RPR Nonreactive 08/25/17 13:00 WBC RBC Hgb Hct MCV MCH MCHC RDW Plt Count MPV Gran % Lymph % (Auto) [place] % (Auto) Eos % (Auto) Baso % (Auto) Gran # Lymph # (Auto) [place] # (Auto) Eos # (Auto) Baso # (Auto) Sodium Potassium Chloride Carbon Dioxide Anion Gap BUN Creatinine Est GFR ( Amer) Est GFR (Non-Af Amer) Random Glucose Fasting Glucose Calcium Total Bilirubin AST ALT Alkaline Phosphatase Total Protein Albumin Globulin Albumin/Globulin Ratio Triglycerides Cholesterol LDL Cholesterol Direct HDL Cholesterol Vitamin B12 860 Free T4 TSH 3rd Generation Urine Color Urine Appearance Urine pH Ur Specific [place] Urine Protein Urine Glucose (UA) Urine Ketones Urine Blood Urine Nitrate Urine Bilirubin Urine Urobilinogen Ur Leukocyte Esterase Salicylates Urine Opiates Screen Urine Methadone Screen Acetaminophen Ur Barbiturates Screen Ur Phencyclidine Scrn Ur Amphetamines Screen U Benzodiazepines Scrn U Oth Cocaine Metabols U Cannabinoids Screen Alcohol, Quantitative RPR Temp Pulse Resp BP Pulse Ox 98.2 F 63 20 138/82 97 08/27/17 07:03 08/27/17 07:03 08/27/17 07:03 08/27/17 07:03 08/24/17 08:44 Consultations:: List each consultation separately and include: 1. Reason for request. 2. Findings. 3. Follow-up Consultations: Consult per Dr Oviedo reviewed thank you Summary of Hospital Course include:: 1. Description of specific treatment plan utilized for patients during their course of treatmen. 2. Summarize the time- course for resolution of acute symptoms and/or regressed behaviors. 3. Describe issues identified and worked on during hospitalization. 4. Describe medication utilized. 5. Describe medical problems identified and treated. 6. Reassessment of suicide risk Summary of Hospital Course: Patient is a 62 year old female admitted with behavioral issues related to her diagnosis of Alzheimers. Her is her sole rental representative. He works 5AM to 2PM. He leaves 2 sandwiches for her which she normally eats on her own. She does not wander nor does she cook on her own. They go out to [employer] at night for dinner. She needs help with her dressing and ADL's. She has grown children who do not live close. She legally has no guardian or POA. Patient is very impaired by the disease with severe deficits in her group home and short term memory. She has no ability to recall, is not able to remember her 's, or children's names. Is able to tell me only that she graduated from [employer], and that she and her go out for dinner every night but not where. Patient has had some periods of agitation at night, was originally started on Haldol which was changed to Seroquel 12.5mg one at . She has utilized a prn of ativan 0.5mg for agitation with success. She was assisted with ADL's, and observed closely while on unit. She attended groups, appears to benefit from interaction. She was seen in neurology consultation by Dr Oviedo, she will follow with him at discharge, has an appointment 08/29/2017. Met with and SW at discharge to go over medication, [facility] patient handouts and instructions given. Also given referrals for [facility] and [employer] caregiver resources, and encouraged to pursue guardianship, he has a friend who is an elder small arms artillery repairer that he is working with on this issue. The need to consider supervision during the time that the has to work as the symptoms and behaviors can change unpredictably was stressed in terms of patient safety. Was also given information for adult day care, [facility] in [place]. - Diagnosis (1) Dementia, unspecified, with behavioral disturbance Current Visit: Yes Status: Acute Priority: High - Final Diagnosis (DSM 5) Condition upon Discharge: STABLE Disposition: HOME/ ROUTINE Follow-up Treatment Plan: Neuro consult Close observation for safety Assistance with ADL's, meals, and direction as needed Medications Ativan, Haldol to help with symptoms as needed Prescriptions/Medication Reconciliation: LORazepam [Ativan] 0.5 mg PO DAILY PRN #14 tab PRN Reason: Agitation QUEtiapine [Seroquel] 12.5 mg PO HS #7 tab - Smoking Cessation Smoking Cessation Medication prescribed: No Reason for not providing: Patient not a smoker - Antipsychotic Medications Pt discharged on 2 or more routine antipsychotic medications: No
--- NOTE | 2017-08-27 18:36 | PN ---
DATE: SUBJECTIVE: The patient is 62 years old, seems to be confused, disoriented. Not agitated. No harmful to others or to herself. PHYSICAL EXAMINATION: VITAL SIGNS: She is afebrile, pulse 63, respirations 20, blood pressure 138/82. LUNGS: Bilateral fair airflow. No rhonchi or crackle. HEART: S1 and S2 audible. ABDOMEN: Soft. Nontender. No rebound. No guarding. NEUROLOGIC: The patient is awake, alert, oriented, able to communicate, but can carry comprehensive interaction and conversation. ASSESSMENT AND PLAN: 1. Dementia with agitation. 2. Anxiety disorder. So I discussed with Dr. Daley. Plan is to discharge her today. She will be taken home by . She is given prescription for Seroquel in case she is agitated to keep her calm. Patricia Andrea MD
== END 2017-08-27 15:37 | disposition home or self-care (01) | DRG 57 ==
LOC: ED 03:24 → ERH 09:02 → PSYC 10:13
PROVIDERS: ADMIT Psychiatry & Neurology Psychiatry; ATTEND Psychiatry & Neurology Psychiatry
PROC: GZ3ZZZZ Medication Management (ICD-10-PCS; principal; 2017-08-24)
DX: G30.9 Alzheimer's disease, unspecified (principal); F02.81 Dementia in other diseases classified elsewhere, unspecified severity, with behavioral disturbance; F41.9 Anxiety disorder, unspecified; M51.36 Other intervertebral disc degeneration, lumbar region; M48.061 Spinal stenosis, lumbar region without neurogenic claudication

== ENCOUNTER 2017-09-09 00:53 | Inpatient (IN) | payer MEDICARE ==
[2017-09-09 01:24] VITALS: BMI 21.9
--- NOTE | 2017-09-09 02:05 | ED PDOC ---
Arrival/HPI - General Chief Complaint: Psychiatric Evaluation Time Seen by Provider: 09/09/17 01:41 Historian: Patient, Spouse - Critical Care Narrative Critical Care (Text): 62yoF, htn, advancing dementia, recent discharge 09/04/17 for agitation, and now brought by the for having hallucinations/agitation and stating that the girls are out to get her. otherwise no n/v/vargas/dizziness/sob/chest pain/abdomen pain/numbness/tingling/loss of limb function. 09/09/17 02:02 - History of Present Illness Time/Duration: 24 hours Symptom Onset: Gradual Symptom Course: Unchanged Activities at Onset: Rest Context: Sitting Past Medical History - Provider Review Nursing Documentation Reviewed: Yes - Travel History Have you recently traveled outside [place] w/in the past 3 mons?: No - Infectious Disease Hx of Infectious Diseases: None - Reproductive Menopause: Yes - Past Medical History Past Medical History: No Previous - Cardiac Hx Hypertension: Yes - Pulmonary Hx Respiratory Disorders: No - Neurological Hx Neurological Disorder: No Hx Alzheimer's Disease: Yes (dx 2011) Hx Dementia: Yes - HEENT Hx HEENT Disorder: Yes (eyeglasses) - Renal Hx Renal Disorder: No - Endocrine/Metabolic Hx Endocrine Disorders: No - Hematological/Oncological Hx Blood Disorders: No - Integumentary Hx Dermatological Disorder: No - Musculoskeletal/Rheumatological Hx Falls: Yes (2013 and 2x's today) Other/Comment: sacral fx 2018 - Gastrointestinal Hx Gastrointestinal Disorders: No - Genitourinary/Gynecological Hx Genitourinary Disorders: No - Psychiatric Hx Depression: No Hx Emotional Abuse: No Hx Physical Abuse: No Hx Substance Use: No Other/Comment: pt has trouble sleeping at night/paranoid - Past Surgical History Past Surgical History: No Previous - Anesthesia Hx Anesthesia: No Hx Anesthesia Reactions: No Hx Malignant Hyperthermia: No - Suicidal Assessment Feels Threatened In Home Enviroment: No Family/Social History Family/Social History: Unknown Family HX Smoking Status: Never Smoked Hx Alcohol Use: No Hx Substance Use: No Allergies/Home Meds Allergies/Adverse Reactions: Allergies No Known Allergies Allergy (Verified 09/09/17 01:25) Home Medications: Home Meds Medication Instructions Recorded Confirmed Donepezil [Aricept] 10 mg PO DAILY 08/31/17 09/09/17 Review of Systems - Review of Systems Constitutional: Normal Eyes: Normal ENT: Normal Respiratory: Normal Cardiovascular: Normal Gastrointestinal: Normal Genitourinary Female: Normal Musculoskeletal: Normal Skin: Normal Neurological: Normal Endocrine: Normal Hemo/Lymphatic: Normal Psychiatric: Anxiety, Other (hallucinations) Physical Exam Vital Signs Temp Pulse Resp BP Pulse Ox 09/09/17 01:45 98.6 F 72 18 134/74 98 Appearance: Positive for: Well-Appearing, Non-Toxic, Comfortable Pain Distress: None Mental Status: Positive for: Alert and Oriented X 3 - Systems Exam Head: Present: Atraumatic, Normocephalic Pupils: Present: PERRL Extroacular Muscles: Present: EOMI Conjunctiva: Present: Normal Ears: Present: Normal Mouth: Present: Moist Mucous Membranes Pharnyx: Present: Normal Nose (External): Present: Atraumatic Nose (Internal): Present: Normal Inspection Neck: Present: Normal Range of Motion Respiratory/Chest: Present: Clear to Auscultation, Good Air Exchange Cardiovascular: Present: Regular Rate and Rhythm Abdomen: No: Tenderness, Distention, Normal Bowel Sounds, Peritoneal Signs, Rebound, Guarding, McBurney's Point Tender, Rovsing's Sign Present, Hernias, Feeding Tubes, Ostomy Tubes, Mass/Organomegaly, Scars, Other Back: Present: Normal Inspection Upper Extremity: Present: Normal Inspection Lower Extremity: Present: Normal Inspection Neurological: Present: GCS=15, CN II-XII Intact, Speech Normal, Motor Func Grossly Intact Skin: Present: Warm, Normal Color Psychiatric: Present: Alert, Anxious, Agitated, Hallucinations Medical Decision Making ED Course and Treatment: 09/09/17 02:05 62yoF, htn, advancing dementia, recent discharge 09/04/17 for agitation, and now brought by the for having hallucinations/agitation and stating that the girls are out to get her. otherwise no n/v/vargas/dizziness/sob/chest pain/abdomen pain/numbness/tingling/loss of limb function. 09/09/17 04:27 ECG: sinus bradycardia 09/09/17 06:03 wbc 7 hb 12 plts 238 trop < 0.01 etoh neg 09/09/17 06:12 08/24/17 CXR no active disease. d/w Dr. Andrea who stated recommend psychiatry evaluation in the ED. 09/09/17 06:14 PES notified. 09/09/17 06:[address] Schneider to fu, , psychiatry Dr. Daley and hospitalist Dr. Andrea. 09/09/17 07:18 Dr. Daley psychiatry stated recommends medical admission. she will eval pt consultation. paged Dr. Andrea to discuss again. 09/09/17 07:39 - Lab Interpretations Lab Results: 09/09/17 05:05 09/09/17 05:05 Lab Results 09/09/17 06:30: Urine Opiates Screen Negative, Urine Methadone Screen Negative, Ur Barbiturates Screen Negative, Ur Phencyclidine Scrn Negative, Ur Amphetamines Screen Negative, U Benzodiazepines Scrn Negative, U Oth Cocaine Metabols Negative, U Cannabinoids Screen Negative 09/09/17 05:05: Alcohol, Quantitative < 10 09/09/17 05:05: Salicylates < 1 L, Acetaminophen < 10.0 L 09/09/17 05:05: Sodium 145, Potassium 4.6, Chloride 103, Carbon Dioxide 33, Anion Gap 14, BUN 21, Creatinine 0.9, Est GFR ( Amer) > 60, Est GFR (Non- Af Amer) > 60, Random Glucose 74, Calcium 10.3, Total Bilirubin 0.2, AST 43 H D , ALT 30, Alkaline Phosphatase 54, Troponin I < 0.01, Total Protein 7.1, Albumin 4.2, Globulin 2.9, Albumin/Globulin Ratio 1.5 09/09/17 05:05: WBC 7.2 D, RBC 4.14, Hgb 12.1, Hct 36.9, MCV 89.1, MCH 29.2, MCHC 32.8, RDW 13.6, Plt Count 238, MPV 9.8, Gran % 34.3 L, Lymph % (Auto) 54.7 H, [place] % (Auto) 8.5 H, Eos % (Auto) 2.2, Baso % (Auto) 0.3, Gran # 2.46, Lymph # (Auto) 3.9 H, [place] # (Auto) 0.6, Eos # (Auto) 0.2, Baso # (Auto) 0.02 I have reviewed the lab results: Yes - RAD Interpretation Client Evaluator: Radiologist - EKG Interpretation Interpreted by ED Physician: Yes (sinus bradycardia) Type: 12 lead EKG - Medication Orders Current Medication Orders: Discontinued Medications Lorazepam (Ativan) 2 mg IM ONCE ONE PRN Reason: Protocol Stop: 09/09/17 04:12 Last Admin: 09/09/17 04:17 Dose: 2 mg IM Administration Charges Document 09/09/17 04:17 JOL (Rec: 09/09/17 04:17 JOL [facility] [id number]) Injection Site MAR Injection Site Left Deltoid Charges for Administration # of IM Administrations 1 Disposition/Present on Arrival - Present on Arrival History of DVT/PE: No History of Uncontrolled Diabetes: No Urinary Catheter: No History of Decub. Ulcer: No History Surgical Site Infection Following: None - Disposition Forms: [employer] (Swedish)
[2017-09-09 05:23] LABS: BASO # 0.02 K/mm3 (0.0-2.0); BASO % 0.3 % (0.0-3.0); EOS # 0.2 (0.0-0.7); EOS % 2.2 % (1.5-5.0); GRAN # 2.46 (1.4-6.5); GRAN % 34.3 % (50.0-68.0); HEMOGLOBIN 12.1 g/dL (12.0-16.0); LYMPH # 3.9 (1.2-3.4); LYMPH % 54.7 % (22.0-35.0); MEAN CELL VOLUME 89.1 fl (80.0-105.0); MEAN CORPUSCULAR HEMOGLOBIN 29.2 pg (25.0-35.0); MEAN CORPUSCULAR HGB CONC 32.8 g/dl (31.0-37.0); MEAN PLATELET VOLUME 9.8 fl (7.0-11.0); MONO # 0.6 (0.1-0.6); MONO % 8.5 % (1.0-6.0); RBC 4.14 10^6/uL (3.5-6.1); RED CELL DISTRIBUTION WIDTH 13.6 % (11.5-14.5); WHITE BLOOD COUNT 7.2 10^3/ul (4.5-11.0)
[2017-09-09 05:41] LABS: ACETAMINOPHEN < 10.0 ug/ml (10.0-20.0); SALICYLATE < 1 mg/dL (2.0-20.0)
[2017-09-09 05:52] LABS: ALB/GLOB RATIO 1.5 (1.1-1.8); ALBUMIN 4.2 g/dL (3.0-4.8); ALT/SGPT 30 U/L (7-56); AST/SGOT 43 U/L (14-36); BLOOD UREA NITROGEN 21 mg/dL (7-21); CALCIUM 10.3 mg/dL (8.4-10.5); GFR AFRICAN-AMERICAN > 60; GFR NON-AFRICAN AMERICAN > 60
[2017-09-09 05:53] LABS: TROPONIN I < 0.01 ng/mL
--- NOTE | 2017-09-09 07:10 | ED PDOC ---
Physical Exam Vital Signs Temp Pulse Resp BP Pulse Ox 09/09/17 01:45 98.6 F 72 18 134/74 98 Medical Decision Making ED Course and Treatment: 09/09/17 07:00 Case signed out to me by Dr. Pascual. Patient is a 62 year old female who had recent discharge on 09/04/17 brought in by her today for hallucinations. Patient is currently pending psych evaluation from Dr. Salcido and Urinalysis. 09/09/17 08:35 Case was discussed with Dr. Salcido and Dr. Andrea who stated patient cannot be signed into voluntary psych without poa. has not obtain legal gaurdianship. Dr. Andrea accepts patient to medical service. 09/09/17 13:42 - Lab Interpretations Lab Results: 09/09/17 05:05 09/09/17 05:05 Lab Results 09/09/17 06:30: Urine Opiates Screen Negative, Urine Methadone Screen Negative, Ur Barbiturates Screen Negative, Ur Phencyclidine Scrn Negative, Ur Amphetamines Screen Negative, U Benzodiazepines Scrn Negative, U Oth Cocaine Metabols Negative, U Cannabinoids Screen Negative 09/09/17 06:30: Urine Color Yellow, Urine Appearance Clear, Urine pH 6.0, Ur Specific [place] 1.015, Urine Protein Negative, Urine Glucose (UA) Negative, Urine Ketones Negative, Urine Blood Negative, Urine Nitrate Negative, Urine Bilirubin Negative, Urine Urobilinogen 0.2, Ur Leukocyte Esterase Negative 09/09/17 05:05: Alcohol, Quantitative < 10 09/09/17 05:05: Salicylates < 1 L, Acetaminophen < 10.0 L 09/09/17 05:05: Sodium 145, Potassium 4.6, Chloride 103, Carbon Dioxide 33, Anion Gap 14, BUN 21, Creatinine 0.9, Est GFR ( Amer) > 60, Est GFR (Non- Af Amer) > 60, Random Glucose 74, Calcium 10.3, Total Bilirubin 0.2, AST 43 H D , ALT 30, Alkaline Phosphatase 54, Troponin I < 0.01, Total Protein 7.1, Albumin 4.2, Globulin 2.9, Albumin/Globulin Ratio 1.5 09/09/17 05:05: WBC 7.2 D, RBC 4.14, Hgb 12.1, Hct 36.9, MCV 89.1, MCH 29.2, MCHC 32.8, RDW 13.6, Plt Count 238, MPV 9.8, Gran % 34.3 L, Lymph % (Auto) 54.7 H, [place] % (Auto) 8.5 H, Eos % (Auto) 2.2, Baso % (Auto) 0.3, Gran # 2.46, Lymph # (Auto) 3.9 H, [place] # (Auto) 0.6, Eos # (Auto) 0.2, Baso # (Auto) 0.02 - Medication Orders Current Medication Orders: Discontinued Medications Lorazepam (Ativan) 2 mg IM ONCE ONE PRN Reason: Protocol Stop: 09/09/17 04:12 Last Admin: 09/09/17 04:17 Dose: 2 mg IM Administration Charges Document 09/09/17 04:17 JOL (Rec: 09/09/17 04:17 JOL [facility] [place]-[id number]) Injection Site MAR Injection Site Left Deltoid Charges for Administration # of IM Administrations 1 - Scribe Statement The provider has reviewed the documentation as recorded by the Scribe Lisa Au Provider Scribe Attestation: All medical record entries made by the Scribe were at my direction and personally dictated by me. I have reviewed the chart and agree that the record accurately reflects my personal performance of the history, physical exam, medical decision making, and the department course for this patient. I have also personally directed, reviewed, and agree with the discharge instructions and disposition. Disposition/Present on Arrival - Present on Arrival Any Indicators Present on Arrival: No History of DVT/PE: No History of Uncontrolled Diabetes: No Urinary Catheter: No History of Decub. Ulcer: No History Surgical Site Infection Following: None - Disposition Have Diagnosis and Disposition been Completed?: Yes Diagnosis: Dementia, unspecified, with behavioral disturbance Disposition: HOSPITALIZED Disposition Time: 07:00 Condition: STABLE
[2017-09-09 07:23] LABS: BARBITURATES, UR NEGATIVE (NEGATIVE); BENZODIAZEPINES, UR NEGATIVE (NEGATIVE); OPIATES, UR NEGATIVE (NEGATIVE); PHENCYCLIDINE, UR NEGATIVE (NEGATIVE)
[2017-09-09 07:43] LABS: URINE BILIRUBIN NEGATIVE (NEGATIVE); URINE BLOOD NEGATIVE (NEGATIVE); URINE GLUCOSE (UA) NEGATIVE (NEGATIVE); URINE LEUKOCYTE ESTERASE NEGATIVE Leu/uL (NEGATIVE); URINE NITRATE NEGATIVE (NEGATIVE); URINE PROTEIN NEGATIVE mg/dL (<30 mg/dL); URINE UROBILINOGEN 0.2 E.U./dL (<1 E.U./dL)
[2017-09-09 07:44] LABS: URINE APPEARANCE CLEAR (CLEAR); URINE COLOR YELLOW (YELLOW)
[2017-09-09] MEDS ORDERED: Influenza Vaccine 60 mcg/0.5 mL SYR (4YR UP) IM ONE (13:17)
[2017-09-09] MEDS ORDERED: Pneumococcal 23-Valent Vaccine IM ONE (13:17)
--- NOTE | 2017-09-09 20:37 | CON ---
DATE: 09/09/2017 CHIEF COMPLAINT: Hallucinations. HISTORY OF PRESENT ILLNESS: This is a 62-year-old woman who is well known to me with past medical history of severe Alzheimer's dementia with behavioral disturbances, was recently discharged from [facility] on 09/04/2017 for agitation, was seen by Psychiatry, who comes in for having hallucinations and saying that girls are out to get her. She was also agitated during my visitation today, and she was given Ativan, awaiting Psychiatry evaluation. She lacks the cognition and judgement completely. She also has a history of syncope, which is secondary to dehydration and deconditioned state. PAST MEDICAL HISTORY: History of early-onset Alzheimer's dementia and hypertension. REVIEW OF SYSTEMS: A 14-point review of systems in negative except as per the HPI. ALLERGIES: NO KNOWN DRUG ALLERGIES. SOCIAL HISTORY: No illicit drug use, smoking, or ETOH abuse. She lives with her who is taking of care of her all the time. PHYSICAL EXAMINATION: VITAL SIGNS: Temperature 97.9, pulse rate 73, blood pressure 110/80, respiratory rate 16, oxygen saturation 99% on room air. GENERAL: Patient is sitting up in bed, in no acute distress. HEENT: Atraumatic and normocephalic. PERRLA. Extraocular muscles intact. NECK: Supple. No JVD, no adenopathy noted. LUNGS: Clear to auscultation. No adventitious sounds. HEART: S1 and S2. Normal rate and rhythm. No murmurs, rubs, or gallops. ABDOMEN: Nontender, nondistended. Bowel sounds present. EXTREMITIES: No clubbing. No cyanosis. Peripheral pulses 2+ felt bilaterally. NEUROLOGIC: The patient is alert and oriented to person, not much to month, year, or season. Does not know the President of [employer]. Recall after 5 minutes is 0/3. Poor attention span. Slow thought process. Poor judgement. Cannot draw a clock. Barely can write or sign her name with her handwriting. Speech is fluent without errors. Cranial nerves II through XII intact. Motor: Slightly increased tone throughout. Moves all extremities equally. No pronator drift seen. Sensory: Light touch, pinprick, proprioception, and vibration intact. DTRs are 2+ throughout. Gait is slightly wide based. Romberg is negative. LABORATORY DATA: Sodium 145, potassium 4.6, chloride 103, carbon dioxide of 33, BUN of 21, creatinine 0.9, random glucose 74. ASSESSMENT: This is a 62-year-old woman with past medical history of severe early-onset of Alzheimer's dementia with behavioral disturbance, came in for some hallucinations and seeing a woman that is out to get her. She lacks cognition and judgement and has frequent behavioral disturbances, which is likely what is going on. She cannot take care of herself, nor can her at home. She needs possibly round the clock assistance at home and needs better sleep hygiene. RECOMMENDATIONS: 1. Seroquel 25 mg p.o. b.i.d. for behavioral disturbances. 2. Klonopin 0.5 mg p.o. b.i.d. for anxiety as well as behavioral disturbances. 3. She will need long-term care and assistance because of the repetitive behavioral disturbances. 4. She will need a psychiatric consult and evaluation for her behavioral disturbances and mood stabilization. 5. Continue comprehensive medical management. 6. Continue her on Aricept 10 mg p.o. daily for dementia. Thank you for this consult. Lorenzo Ovideo MD
--- NOTE | 2017-09-10 02:44 | CARD ---
APPROVED REPORT EKG Measurement Heart [id number] <Conclusion> Sinus bradycardia Septal infarct, age undetermined Abnormal ECG
--- NOTE | 2017-09-10 08:25 | HP ---
HISTORY OF PRESENT ILLNESS: Patient is 62-year-old who was brought in by . She was hallucinating, she thinks devil's are coming towards her. Patient states initially on last visit her main issue was tremors, but this time tremor had subsided, but she started to hallucinate, especially when he read the side effect, this was thought of the side effect of Seroquel, concerning when he brought her to emergency room for further evaluation and adjust of her medication. He states that she does not have nausea, vomiting, diarrhea. No fever, no chills. No abdominal pain. No back pain. No leg pain. I had a discussion with ER physician. Patient belongs to Psych Unit, but does not have power of securities attorney and patient is not in any capacity to sign herself and so she was admitted to medical floor. PAST MEDICAL HISTORY: She has no significant past medical history except early Alzheimer's and anxiety disorder. ALLERGIES: SHE IS NOT ALLERGIC TO ANY MEDICATION. MEDICATIONS AT HOME: She is on Aricept, Seroquel, and Ativan. SOCIAL HISTORY: She is , lives with her . Never smoked, drank, or alcohol use. REVIEW OF SYSTEMS: Significant for confusion and agitation and now complaining of hallucination. PHYSICAL EXAMINATION: GENERAL: She is sleepy, but arousable, answers simple questions, is unable to carry on conversation. VITAL SIGNS: She is afebrile, pulse 73, respirations 16, blood pressure 110/80. LUNGS: Bilateral fair airflow. No rhonchi or crackle. HEART: S1 and S2 audible. ABDOMEN: Soft and nontender. No rebound. No guarding. NEUROLOGIC: Patient is awake, alert, oriented, communicative. LABORATORY DATA: WBC 7.2, hemoglobin 12, hematocrit 36, platelet 238. Chemistry: Sodium 145, potassium 4.6, chloride 103, CO2 of 23, BUN 21, creatinine 1.9. Blood sugar of 74. Urinalysis is unremarkable. Urine tox is negative. ASSESSMENT: 1. Confusion and agitation. 2. Hallucination. 3. Early dementia. PLAN: So, plan is, patient is going to be admitted on medical floor. Dr. Oviedo and Dr. Daley will be consulted. Will continue on Seroquel for lifetime and she will be given lorazepam as needed. At this point, this is a disposition issue, patient cannot take care of her at home. She should be admitted in Psych Unit. I discussed with [employer] who need to seek some legal advice. He should be power of securities attorney who can sign her to Psych Unit to adjust her psych medication and her response to psych medication and observation of her behavior. Patricia Andrea MD
--- NOTE | 2017-09-10 08:41 | CON ---
DATE: 09/09/2017 She is being seen today for a consultation. PRESENTATION: Patient was brought to the emergency room today by her . Evidently, she became very agitated last night when she got hurt and was unable to sleep. She has gotten a dose of Seroquel 25 mg at bedtime and slept for an hour or two and then got very disoriented, agitated, very difficult to manage, so her brought her to the emergency room because she was hallucinating and he was having trouble with her behavior. Patient is known to us. She has been seen in consultation several times. She was admitted to the hospital on 08/16 for fall. At that time, when we went to see the patient, she had already been discharged, but then she was admitted psychiatrically on 08/24/2017 and she was discharged within a few days, was again admitted for tremors on 08/31/2017 and now is back again with increasing behavioral issues related to her advanced Alzheimer's. Her is an attendant, he was having a lot of difficulty in dealing with patient's behavioral changes. It has been suggested to him that patient may need placement at this point in time due to her advancing disease. She is being seen today in the emergency room and she cannot be admitted psychiatrically due to the fact that she is not cognizant. She has no capacity to consent for treatment, and we have a voluntary unit that she must sign into, so we are unable to keep her there, so she is being admitted medically per Dr. Andrea, and Psychiatry will continue on consult. PHYSICAL EXAMINATION: VITAL SIGNS: The patient's current vial signs include temperature of 97.9, pulse rate of 73, blood pressure of 110/80, and respiratory rate of 16. MENTAL STATUS EXAM: Patient's mental status consists of her being disoriented, only oriented x1. She answers to her name. She is not able to relate any kind of a history, the names of her children, her 's name, the name of her doctor. She is pleasant and social very superficially, but quickly becomes confused and frustrated. She has no idea where she is. DIAGNOSTIC IMPRESSION: Alzheimer's, early onset with behavioral disturbance. PLAN: Patient has not ever had any indication in her behavior getting suicidal or homicidal. However, with her advanced syncopes and confusion, it was difficult to predict her behavior. She had not been aggressive up until within the last few weeks. Her had been able to work and leave her home alone for some hours during the day without concern. She would go to bed easily and did not have the sundowning that is appearing at this point in time. Her current medications include Seroquel 25 mg one p.o. b.i.d., Ativan 0.5 mg p.o. or IM as needed for agitation. She had Ativan in the emergency room, which was helpful to her in helping her calm down, and she was very cooperative at that point. This case has been discussed with Dr. Salcido. We will continue to follow. Thank you for the consult. Toshia Arceo APN Thuy Salcido MD
--- NOTE | 2017-09-10 13:16 | CP.PCM.PN ---
Subjective - Date & Time of Evaluation Date of Evaluation: 09/10/17 Time of Evaluation: 12:00 - Subjective Subjective: DATE: 09/10/2017 CHIEF COMPLAINT: Hallucinations. SUBJECTIVE: No acute events overnight. She is AAOX1. Mildly agitated when asking questions. PAST MEDICAL HISTORY: History of early-onset Alzheimer's dementia and hypertension. REVIEW OF SYSTEMS: A 14-point review of systems in negative except as per the HPI. ALLERGIES: NO KNOWN DRUG ALLERGIES. SOCIAL HISTORY: No illicit drug use, smoking, or ETOH abuse. She lives with her who is taking of care of her all the time. PHYSICAL EXAMINATION: VITAL SIGNS: Reviewed. GENERAL: Patient is sitting up in bed, in no acute distress. HEENT: Atraumatic and normocephalic. PERRLA. Extraocular muscles intact. NECK: Supple. No JVD, no adenopathy noted. LUNGS: Clear to auscultation. No adventitious sounds. HEART: S1 and S2. Normal rate and rhythm. No murmurs, rubs, or gallops. ABDOMEN: Nontender, nondistended. Bowel sounds present. EXTREMITIES: No clubbing. No cyanosis. Peripheral pulses 2+ felt bilaterally. NEUROLOGIC: The patient is alert and oriented to person, not much to month, year, or season. Does not know the President of [facility]. Recall after 5 minutes is 0/3. Poor attention span. Slow thought process. Poor judgement. Cannot draw a clock. Barely can write or sign her name with her handwriting. Speech is fluent without errors. Cranial nerves II through XII intact. Motor: Slightly increased tone throughout. Moves all extremities equally. No pronator drift seen. Sensory: Light touch, pinprick, proprioception, and vibration intact. DTRs are 2+ throughout. Gait is slightly wide based. Romberg is negative. LABORATORY DATA: Reviewed. ASSESSMENT: This is a 62-year-old woman with past medical history of severe early-onset of Alzheimer's dementia with behavioral disturbance, came in for some hallucinations and seeing a woman that is out to get her. She lacks cognition and judgement and has frequent behavioral disturbances, which is likely what is going on. She cannot take care of herself, nor can her at home. She needs possibly round the clock assistance at home and needs better sleep hygiene. RECOMMENDATIONS: 1. Seroquel 25 mg p.o. b.i.d. for behavioral disturbances. 2. Klonopin 0.5 mg p.o. b.i.d. for anxiety as well as behavioral disturbances. 3. She will need long-term care and assistance because of the repetitive behavioral disturbances. 4. She will need a psychiatric follow up for her behavioral disturbances and mood stabilization. 5. Continue comprehensive medical management. 6. Continue her on Aricept 10 mg p.o. daily for dementia. 7. No further neuro intervention, f.u with psych. Thank you Lorenzo Oviedo MD Objective - Vital Signs/Intake and Output Vital Signs (last 24 hours): Temp Pulse Resp BP Pulse Ox 98.2 F 62 20 122/62 97 09/10/17 08:09 09/10/17 08:09 09/10/17 08:09 09/10/17 08:09 09/10/17 08:09 - Medications Medications: Current Medications Alprazolam (Xanax) 0.5 mg PO BID BAYRON PRN Reason: Protocol Last Admin: 09/10/17 10:37 Dose: 0.5 mg Donepezil HCl (Aricept) 10 mg PO HS BAYRON Lorazepam (Ativan) 0.5 mg IM Q6H PRN; Protocol PRN Reason: Agitation Last Admin: 09/09/17 19:17 Dose: 0.5 mg Quetiapine Fumarate (Seroquel) 25 mg PO BID BAYRON PRN Reason: Protocol Last Admin: 09/10/17 10:37 Dose: 25 mg
--- NOTE | 2017-09-10 14:38 | DS ---
HISTORY OF PRESENT ILLNESS: The patient is 62 years old, seen and examined, lying in bed, seems to be comfortable, seems to be cooperative, answers simple question, not in any distress, eating well. PHYSICAL EXAMINATION: VITAL SIGNS: She is afebrile, pulse 62, respirations 20, blood pressure 122/62. LUNGS: Bilateral fair airflow. No rhonchi or crackle. HEART: S1 and S2 audible. ABDOMEN: Soft. Nontender. No rebound. No guarding. NEUROLOGIC: The patient is awake and alert, but confused and disoriented. Cannot carry on intelligent conversation. Last night, she was very confused, disoriented, was getting out of bed, was restless, was given Ativan. ASSESSMENT: 1. Dementia with agitation. 2. Behavior disorder. 3. Hallucinations. PLAN: At this point, there is no acuity of care. She can be discharged home after evaluated by Dr. Oviedo. Patricia Andrea MD
--- NOTE | 2017-09-10 19:06 | PN ---
DATE: 09/10/2017 SUBJECTIVE: The patient is a 62-year-old female seen at bedside, one-to-one in attendance. The patient was admitted to the hospital on 09/09/2017 due to increasing agitation at home, not sleeping. Her felt she was having hallucinations and she was concerned about "they are girls out to get her". The patient has had several admissions within the last month due to what appears to be advancing Alzheimer disease. The patient was admitted medically as she did not have capacity to sign in for psychiatric hospitalization. The patient is pleasant on approach today. She has been having difficulties in the evening time. She evidently sundowns. In the evening time; gets very confused, hallucinates, and needs to be reoriented. She requires a one-to-one for safety while on the unit. Her main difficulty seems to occur when she has to be handled in terms of having blood drawn or having an IV. This seems to be precipitous of the patient having a lot of behavioral difficulties. information services consultant are involved as well as Dr. Oviedo in reference to working towards possibly placing patient in a facility as it seems that with her escalating behaviors that she is difficult to manage at home. VITAL SIGNS: Current vital signs include temperature of 98.2, pulse rate of 62, blood pressure of 122/62, respiratory rate of 20 and room air on saturation, O2 sat of 97%. MENTAL STATUS EXAM: Patient is alert. She is oriented x1. Her eye contact is good. She is pleasant. She has lost ability to converse. No idea of current events, names of her children, her . She is superficially pleasant, but stutters a bit as she was trying to speak and has a hard time getting a complete thought out. There is nothing in her behavior to indicate that she is suicidal or homicidal. When she becomes combative, it seems to be to do with confusion or that she perceives she is being hurt such as when blood is drawn and IV is started or something of that sort. DIAGNOSTIC IMPRESSION: Alzheimer dementia, early onset with behavioral disturbances. PLAN: Patient does not in her behavior give any indication that she is suicidal or homicidal; however, she does have a one-to-one mostly for safety due to the fact that she gets confused. Medications that she is getting to help with her confusion include Xanax 0.5 mg one p.o. b.i.d., donepezil 10 mg one at bedtime. She has an Ativan ordered for 0.5 mg IM q.6 hours p.r.n. agitation that was given last night around 8'o clock and she is now receiving Seroquel 25 mg p.o. b.i.d. and she is cooperative in taking her medication. This does appear to be helpful in terms of her behavior. She was pleasantly confused when I saw her. Psychiatry will continue to follow. This case has been discussed with Dr. Salcido. Thank you for the consult. Toshia Arceo APN MTDCristy
--- NOTE | 2017-09-11 17:02 | CP.PCM.PCO ---
Addendum Addendum: 09/11/17 16:43 pt's approached this publications writer Shekhar Duda expressed his concerns about pt's hallucinations (not new, pt had visual hallucinations before), but now as per pt is terrified and scared. pt's said that pt was scheduled for d/c pt seems to be sedated, was deeply sleeping and was not able to be aroused, vitals are WNL discussed with : 1. course of illness, dementia, unfortunately no cure, and progressively worsening 2. obtaining the legal guardianship, phones provided for [employer] [phone] and [employer] [phone] (this info was provided more than 5 times by ALDA, case management. 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
--- NOTE | 2017-09-11 18:23 | CP.PCM.PN ---
Subjective - Date & Time of Evaluation Date of Evaluation: 09/11/17 Time of Evaluation: 16:00 - Subjective Subjective: DATE: 09/11/2017 CHIEF COMPLAINT: Hallucinations. SUBJECTIVE: No acute events overnight. She is AAOX1. Mildly agitated when asking questions. Talked to in detail about the plan as out patient. Seroquel 12.5 mg po bid. No ativan please. PAST MEDICAL HISTORY: History of early-onset Alzheimer's dementia and hypertension. REVIEW OF SYSTEMS: A 14-point review of systems in negative except as per the HPI. ALLERGIES: NO KNOWN DRUG ALLERGIES. SOCIAL HISTORY: No illicit drug use, smoking, or ETOH abuse. She lives with her who is taking of care of her all the time. PHYSICAL EXAMINATION: VITAL SIGNS: Reviewed. GENERAL: Patient is sitting up in bed, in no acute distress. HEENT: Atraumatic and normocephalic. PERRLA. Extraocular muscles intact. NECK: Supple. No JVD, no adenopathy noted. LUNGS: Clear to auscultation. No adventitious sounds. HEART: S1 and S2. Normal rate and rhythm. No murmurs, rubs, or gallops. ABDOMEN: Nontender, nondistended. Bowel sounds present. EXTREMITIES: No clubbing. No cyanosis. Peripheral pulses 2+ felt bilaterally. NEUROLOGIC: The patient is alert and oriented to person, not much to month, year, or season. Does not know the President of [facility]. Recall after 5 minutes is 0/3. Poor attention span. Slow thought process. Poor judgement. Cannot draw a clock. Barely can write or sign her name with her handwriting. Speech is fluent without errors. Cranial nerves II through XII intact. Motor: Slightly increased tone throughout. Moves all extremities equally. No pronator drift seen. Sensory: Light touch, pinprick, proprioception, and vibration intact. DTRs are 2+ throughout. Gait is slightly wide based. Romberg is negative. LABORATORY DATA: Reviewed. ASSESSMENT: This is a 62-year-old woman with past medical history of severe early-onset of Alzheimer's dementia with behavioral disturbance, came in for some hallucinations and seeing a woman that is out to get her. She lacks cognition and judgement and has frequent behavioral disturbances, which is likely what is going on. She cannot take care of herself, nor can her at home. She needs possibly round the clock assistance at home and needs better sleep hygiene. RECOMMENDATIONS: 1. reduce Seroquel 12.5 mg p.o. b.i.d. for behavioral disturbances. 2. xanax 0.5 mg p.o. b.i.d. for anxiety as well as behavioral disturbances. Do not give ATIVAN IM or IV. 3. She will need long-term care and assistance because of the repetitive behavioral disturbances. 4. She will need a psychiatric follow up for her behavioral disturbances and mood stabilization. 5. Continue comprehensive medical management. 6. Continue her on Aricept 10 mg p.o. daily for dementia. 7. f.u with psych recommendations. 8. Talked to in detail about the plan as out patient. Thank you Lorenzo Oviedo MD Objective - Vital Signs/Intake and Output Vital Signs (last 24 hours): Temp Pulse Resp BP Pulse Ox 98.2 F 62 20 122/62 97 09/10/17 08:09 09/10/17 08:09 09/10/17 08:09 09/10/17 08:09 09/10/17 08:09 Intake and Output: 09/11/17 09/11/17 06:59 18:59 Intake Total 660 Balance 660 - Medications Medications: Current Medications Alprazolam (Xanax) 0.25 mg PO TID PRN; Protocol PRN Reason: restlessnes, anxiety Donepezil HCl (Aricept) 10 mg PO HS BAYRON Last Admin: 09/10/17 21:46 Dose: 10 mg Lorazepam (Ativan) 0.5 mg IM Q6H PRN; Protocol PRN Reason: Agitation Last Admin: 09/09/17 19:17 Dose: 0.5 mg Quetiapine Fumarate (Seroquel) 12.5 mg PO BID BAYRNO PRN Reason: Protocol
[2017-09-11 20:58] VITALS: BP 112/61; PULSE 54; RESP 16; TEMP 98.6; O2SAT 92
--- NOTE | 2017-09-12 03:12 | DS ---
HISTORY OF PRESENT ILLNESS: The patient is 62-year-old, seen and examined, sitting in chair, seems to be comfortable, answers very simple questions in yes and no, does not know time and the date, does not know her 's name. She is walking around fine. No tremors noted. She is on one-to-one human resources communications manager. PHYSICAL EXAMINATION: VITAL SIGNS: She is afebrile. Pulse 62, respirations 20, and blood pressure 122/62. LUNGS: Bilateral fair airflow. No rhonchi or crackles. HEART: S1 and S2 audible. ABDOMEN: Soft, nontender. No rebound. No guarding. NEUROLOGIC: She is awake, alert, oriented, communicative. ASSESSMENT: 1. Hallucination as per secondary to Seroquel. I discussed with Dr. Oviedo. He states Seroquel is given for hallucination. 2. Anxiety disorder. 3. Premature dementia with agitation symptom. PLAN: The patient will be discharged today. At this point, does not have much to offer. She needs 24-hour care. She cannot be left alone because she is totally confused and disoriented, and I asked Dr. Oviedo if he can talk to the and answer his questions about hallucination and adjustment of the medication. Patricia Andrea MD
--- NOTE | 2017-09-12 08:12 | PN ---
DATE: 09/11/2017 She is being seen today for a followup consultation. PRESENTATION: Patient is a 62-year-old white female, seen at bedside. She was originally admitted on 09/09/2017. Her son brought her to the ER for having hallucinations, agitation and stating that "the Gods are out to get her." This is a new behavior for this patient. She has advanced Alzheimer disease. Patient's psychiatric consult was ordered due to psych. Patient is seen today in company of her . She continues disoriented. She was calm. She was sitting with her one-to-one. is upset because evidently he has been told that she has been discharged and he is concerned because no other medication has been tried. He feels that the Seroquel is problematic for her and he has some feeling that Dr. Oviedo does not want to handle the case anymore. I pointed out to the patient that Dr. Andrea is the attending on this for his on the medical side and that she is in charge of the case, that I am here on consult for psychiatry, but that Dr. Salcido and I have not been handling her medications, that Dr. Oviedo has ordered all of her medications and has been managing them with changes throughout her hospital admission and at this point, it is not appropriate for us to change the medication as he has been handling it. Secondarily, the requests that we be able to take the patient over to the Psychiatric Unit because he does not feel the medications are right. He feels that there should be some changes and he is not being heard. She is unable to sign her name physically, but she additionally does not have capacity, so she is not able to sign into a voluntary unit at this time, so we cannot take her to our unit. Nursing staff will contact Dr. Andrea with the patient's concerns. Patient's has already spoken or attempted to speak with Dr. Oviedo. Social Work is involved. At this time, the is planning to take time off work and get some help in the home in order to care for his . This has been discussed with him multiple times including the possibility that a fdc might be appropriate for her in her present condition. It appears that the barrier to this is that the feels that the next step is for her to have help in the home. He does not want to go right into a fdc situation. He wants to make sure, he has done everything he can to keep her home before she goes. So he has made several phone calls and he is trying to arrange follow up at home, but he would like to see if there can be some medication changes that might be more helpful for his . He is very upset. MENTAL STATUS EXAM: Patient is oriented x1. She is sitting with a one-to-one. She is cooperative though she has periods of upset and confusion that are difficult to resolve. According to nurse's notes, even today she woke up in the morning, was suspicious and uncooperative. She does take her medication without a problem and she became calmer later. So her symptoms vacillate from time to time and she clearly sundowns and her symptoms become much more difficult in the evening time. Her behavior has gotten worse over the last 3 weeks to months. feels it is related to medication. I have discussed with him that it is equally possible that these symptoms can be related to advancing Alzheimer disease, but certainly every avenue should be explored. CURRENT VITAL SIGNS: Include temperature of 98.2, pulse rate of 62, blood pressure is 122/62, respiratory rate of 20 and O2 sat of 97%. PLAN: Patient does not appear to be suicidal or homicidal in terms of her behavior and she has no psychiatric history in the past and no history of suicide attempt. She does have the one-to-one for safety as her behavior can change quickly. Patient's has been referred to the Office on Aging to obtain guardianship, however he does have a friend who is an elder wagon washer who he prefers to use that he says he will follow up with. This case is being followed with the director social welfare for case management and referrals for home care. Dr. Salcido is aware of this situation and will intervene if necessary, psychiatry will continue to follow. Thank you for the consult. Toshia Arceo APN Thuy Salcido MD [facility] # [id number] VISH
--- NOTE | 2017-09-13 02:33 | DS ---
HISTORY OF PRESENT ILLNESS: The patient is a 62-year-old, sitting in a chair, seems to be comfortable, answers simple questions, anxious to go home. She states "I'm waiting for my ". Patient was given first dose of Xanax yesterday, and by the time she was about to be discharged, patient was very sleepy. So her discharge yesterday was held as per Dr. Daley's recommendations. PHYSICAL EXAMINATION: GENERAL: On examination today, she seems to be awake and alert, answers simple questions. She is confused and disoriented, emotional. VITAL SIGNS: She is afebrile, pulse 64, respirations 16, and blood pressure 112/61. LUNGS: Bilateral good airflow. No rhonchi or crackles. HEART: S1 and S2 audible. ABDOMEN: Soft, nontender. No rebound. No guarding. NEUROLOGIC: Patient is awake and alert, able to communicate, but does not have insight or gravity of her problems. PLAN: I had a discussion with Dr. Daley and Dr. Oviedo. They have explained to the patient's many times that her early Alzheimer's and hallucination is part of her sickness. But her thinks that this is the side effect of Seroquel. However, Seroquel dose is dropped from 25 to 12.5 twice a day and she will be given Xanax 0.25 as needed for agitation. She will follow up with Dr. Oviedo as outpatient. Patricia Andrea MD
== END 2017-09-12 18:02 | disposition home or self-care (01) | DRG 57 ==
LOC: ED 00:53 → ERH 08:40 → 5RNO 10:14
PROVIDERS: ADMIT Internal Medicine; ATTEND Internal Medicine
DX: G30.0 Alzheimer's disease with early onset (principal); F02.81 Dementia in other diseases classified elsewhere, unspecified severity, with behavioral disturbance; F41.9 Anxiety disorder, unspecified; I10 Essential (primary) hypertension

== ENCOUNTER 2017-09-13 07:44 | Inpatient (IN) | payer MEDICARE ==
--- NOTE | 2017-09-13 08:17 | ED PDOC ---
Arrival/HPI - General Chief Complaint: Medical Clearance Time Seen by Provider: 09/13/17 07:48 Historian: Patient, Spouse - History of Present Illness Narrative History of Present Illness (Text): 09/13/17 08:07 Barbara Glover is a 62 year old female, whose past medical history includes advances Alzheimer, who presents to the emergency department with " involuntary twitching" since 06:00 today. Patient has been admitted multiple times for similar symptoms. Patient was discharged yesterday from the hospital. Patient denies any fever, chills, chest pain, shortness of breath, nausea, vomiting, diarrhea, back pain, neck pain, headache, dizziness, or any other complaints. 09/13/17 10:50 Time/Duration: 1-3 hours Symptom Onset: Sudden Symptom Course: Unchanged Activities at Onset: Light Context: Home Past Medical History - Provider Review Nursing Documentation Reviewed: Yes - Infectious Disease Hx of Infectious Diseases: None - Reproductive Menopause: Yes - Past Medical History Past Medical History: No Previous - Cardiac Hx Cardiac Disorders: No - Pulmonary Hx Respiratory Disorders: No - Neurological Hx Neurological Disorder: Yes Hx Alzheimer's Disease: Yes (dx 2011) Hx Dementia: Yes Other/Comment: hx of tremors,involuntary muscle twitching - HEENT Hx HEENT Disorder: Yes (eyeglasses) - Renal Hx Renal Disorder: No - Endocrine/Metabolic Hx Endocrine Disorders: No - Hematological/Oncological Hx Blood Disorders: No - Integumentary Hx Dermatological Disorder: No - Musculoskeletal/Rheumatological Hx Musculoskeletal Disorders: Yes Hx Falls: Yes (recent frequent) - Gastrointestinal Hx Gastrointestinal Disorders: No - Genitourinary/Gynecological Hx Genitourinary Disorders: No - Psychiatric Hx Psychophysiologic Disorder: Yes Hx Hallucinations: Yes (visual) Hx Physical Abuse: No Hx Substance Use: No Other/Comment: pt has trouble sleeping at night/paranoid - Past Surgical History Past Surgical History: No Previous - Anesthesia Hx Anesthesia: No Hx Anesthesia Reactions: No Hx Malignant Hyperthermia: No - Suicidal Assessment Feels Threatened In Home Enviroment: No Family/Social History - Physician Review Nursing Documentation Reviewed: Yes Family/Social History: Unknown Family HX Smoking Status: Never Smoked Hx Alcohol Use: No Hx Substance Use: No Allergies/Home Meds Allergies/Adverse Reactions: Allergies No Known Allergies Allergy (Verified 09/13/17 08:56) Home Medications: Home Meds Medication Instructions Recorded Confirmed Donepezil [Aricept] 10 mg PO DAILY 08/31/17 09/13/17 Review of Systems - Physician Review All systems were reviewed & negative as marked: Yes - Review of Systems Constitutional: Normal Eyes: Normal ENT: Normal Respiratory: Normal. absent: SOB, Cough Cardiovascular: Normal. absent: Chest Pain Gastrointestinal: Normal. absent: Abdominal Pain, Diarrhea, Nausea, Vomiting Genitourinary Female: Normal. absent: Dysuria, Frequency, Hematuria, Urine Output Changes Musculoskeletal: Normal. absent: Back Pain, Neck Pain Skin: Normal. absent: Rash Neurological: Normal. absent: Headache, Dizziness Endocrine: Normal Hemo/Lymphatic: Normal Psychiatric: Normal Physical Exam Vital Signs Reviewed: Yes Vital Signs Temp Pulse Resp BP Pulse Ox 09/13/17 08:00 98.8 F 59 L 18 127/87 98 Temperature: Afebrile Blood Pressure: Normal Pulse: Regular Respiratory Rate: Normal Appearance: Positive for: Well-Appearing, Non-Toxic, Comfortable Pain Distress: None Mental Status: No: Alert and Oriented X 3 (Alert) - Systems Exam Head: Present: Atraumatic, Normocephalic Pupils: Present: PERRL Extroacular Muscles: Present: EOMI Conjunctiva: Present: Normal Mouth: Present: Moist Mucous Membranes Neck: Present: Normal Range of Motion Respiratory/Chest: Present: Clear to Auscultation, Good Air Exchange. No: Respiratory Distress, Accessory Muscle Use Cardiovascular: Present: Regular Rate and Rhythm, Normal S1, S2. No: Murmurs Abdomen: Present: Normal Bowel Sounds. No: Tenderness, Distention, Peritoneal Signs Back: Present: Normal Inspection Upper Extremity: Present: Normal Inspection. No: Cyanosis, Edema Lower Extremity: Present: Normal Inspection. No: Edema Neurological: Present: GCS=15, CN II-XII Intact, Speech Normal Skin: Present: Warm, Dry, Normal Color. No: Rashes Psychiatric: Present: Alert, Other (Confused) Medical Decision Making ED Course and Treatment: 09/13/17 08:07 Impression: 62 year old female presents to the emergency department with involuntary twitching since 06:00 today. Plan: -- Labs -- Xanax -- Reassess and disposition Prior Visits: Notes and results from previous visits were reviewed. Patient was last seen in the emergency department on 09/09/17 for hallucinations. Patient was admitted. Progress Notes: 09/13/17 10:[address] Andrea, who suggests hospitalist admission. Case discussed with Dr. milner, who advises dr lester will admit pt 09/13/17 10:51 suspect symptoms 2/2 to patients known dementia. case discussed in detail with son. son states he is uncomfortable with dc as pt is fall risk. he is not poa, pt cannot be admitted to [facility]. hospitalist accepts case. - Lab Interpretations Lab Results: 09/13/17 08:33 09/13/17 08:33 Lab Results 09/13/17 08:33: Sodium 145, Potassium 5.1 H, Chloride 105, Carbon Dioxide 31, Anion Gap 14, BUN 23 H, Creatinine 0.8, Est GFR ( Amer) > 60, Est GFR ( Non-Af Amer) > 60, Random Glucose 86, Calcium 10.5, Total Bilirubin 0.6, AST 29 , ALT 29, Alkaline Phosphatase 55, Total Protein 7.4, Albumin 4.2, Globulin 3.1 , Albumin/Globulin Ratio 1.3 09/13/17 08:33: PT 11.8, INR 1.03, APTT 35.5 09/13/17 08:33: WBC 6.5, RBC 4.49, Hgb 12.9, Hct 39.8, MCV 88.6, MCH 28.7, MCHC 32.4, RDW 13.3, Plt Count 235, MPV 9.6, Gran % 45.5 L, Lymph % (Auto) 42.2 H, Beckham % (Auto) 9.4 H, Eos % (Auto) 2.3, Baso % (Auto) 0.6, Gran # 2.95, Lymph # ( Auto) 2.7, Beckham # (Auto) 0.6, Eos # (Auto) 0.2, Baso # (Auto) 0.04 - Medication Orders Current Medication Orders: Acetaminophen (Tylenol 325mg Tab) 650 mg PO Q6H PRN PRN Reason: TEMP>=99.5F Acetaminophen (Tylenol 650 Mg Supp) 650 mg RC Q6H PRN PRN Reason: TEMP>=99.5F Alprazolam (Xanax) 0.25 mg PO TID PRN; Protocol PRN Reason: restlessnes, anxiety Stop: 09/20/17 10:24 Aspirin (Ecotrin) 81 mg PO DAILY BAYRON Docusate Sodium (Colace) 100 mg PO TID BAYRON Donepezil HCl (Aricept) 10 mg PO DAILY BAYRON Ergocalciferol (Drisdol 50,000 Intl Units Cap) 1 cap PO Q7D BAYRON Heparin Sodium (Porcine) (Heparin) 5,000 units SC Q8 BAYRON PRN Reason: Protocol Ondansetron HCl (Zofran Inj) 4 mg IVP Q4H PRN PRN Reason: Nausea/Vomiting Pantoprazole Sodium (Protonix Ec Tab) 40 mg PO 0600 BAYRON Quetiapine Fumarate (Seroquel) 12.5 mg PO BID BAYRON PRN Reason: Protocol Discontinued Medications Alprazolam (Xanax) 0.5 mg PO STAT STA PRN Reason: Protocol Stop: 09/13/17 08:13 Last Admin: 09/13/17 08:22 Dose: 0.5 mg - Filibertoibe Statement The provider has reviewed the documentation as recorded by the Divya Tran All medical record entries made by the Divya were at my direction and personally dictated by me. I have reviewed the chart and agree that the record accurately reflects my personal performance of the history, physical exam, medical decision making, and the department course for this patient. I have also personally directed, reviewed, and agree with the discharge instructions and disposition. Disposition/Present on Arrival - Present on Arrival Any Indicators Present on Arrival: No History of DVT/PE: No History of Uncontrolled Diabetes: No Urinary Catheter: No History of Decub. Ulcer: No History Surgical Site Infection Following: None - Disposition Have Diagnosis and Disposition been Completed?: No Diagnosis: Dementia, unspecified, with behavioral disturbance, Twitching Disposition Time: 08:00 Condition: STABLE
[2017-09-13 08:56] LABS: BASO # 0.04 K/mm3 (0.0-2.0); BASO % 0.6 % (0.0-3.0); EOS # 0.2 (0.0-0.7); EOS % 2.3 % (1.5-5.0); GRAN # 2.95 (1.4-6.5); GRAN % 45.5 % (50.0-68.0); HEMOGLOBIN 12.9 g/dL (12.0-16.0); LYMPH # 2.7 (1.2-3.4); LYMPH % 42.2 % (22.0-35.0); MEAN CELL VOLUME 88.6 fl (80.0-105.0); MEAN CORPUSCULAR HEMOGLOBIN 28.7 pg (25.0-35.0); MEAN CORPUSCULAR HGB CONC 32.4 g/dl (31.0-37.0); MEAN PLATELET VOLUME 9.6 fl (7.0-11.0); MONO # 0.6 (0.1-0.6); MONO % 9.4 % (1.0-6.0); RBC 4.49 10^6/uL (3.5-6.1); RED CELL DISTRIBUTION WIDTH 13.3 % (11.5-14.5); WHITE BLOOD COUNT 6.5 10^3/ul (4.5-11.0)
[2017-09-13 09:01] LABS: INR 1.03 (0.93-1.08); PARTIAL THROMBOPLASTIN TIME 35.5 Seconds (25.1-36.5); PROTHROMBIN TIME 11.8 SECONDS (9.4-12.5)
[2017-09-13 09:13] LABS: ALB/GLOB RATIO 1.3 (1.1-1.8); ALBUMIN 4.2 g/dL (3.0-4.8); ALT/SGPT 29 U/L (7-56); AST/SGOT 29 U/L (14-36); BLOOD UREA NITROGEN 23 mg/dL (7-21); CALCIUM 10.5 mg/dL (8.4-10.5); GFR AFRICAN-AMERICAN > 60; GFR NON-AFRICAN AMERICAN > 60
[2017-09-13] MEDS ORDERED: Ergocalciferol 50,000 Intl Units Cap PO SCH (10:30)
[2017-09-13] MEDS: Sodium Chloride 0.9% 1,000 ML IV SCH ×2 (11:28→22:12)
[2017-09-13 11:55] LABS: HDL CHOLESTEROL 69 mg/dL (29-60)
[2017-09-13 12:06] LABS: LDL CHOLESTEROL 103 mg/dL (0-129)
[2017-09-13 12:12] LABS: FREE T4 0.81 ng/dL (0.78-2.19); T4 6.4 ug/dL (5.5-11.0)
[2017-09-13] MEDS ORDERED: Influenza Vaccine 60 mcg/0.5 mL SYR (4YR UP) IM ONE (14:19)
[2017-09-13] MEDS ORDERED: Pneumococcal 23-Valent Vaccine IM ONE (14:19)
--- NOTE | 2017-09-13 22:51 | HP ---
HISTORY OF PRESENT ILLNESS: Patient is a 62-year-old female seen in the bed stretcher #7 in the emergency room. Patient was brought into the emergency room by the patient via [facility] from home complaining of generalized spasm at 6 a.m. Patient has history of tremors and involuntary muscle twitching. Patient was brought to the emergency room by the family. CODE STATUS: Full code. LIVING WILL ADVANCE DIRECTIVE: None. ALLERGIES: NONE. Height is 5 feet 7 inches. Weight is 128. BMI is 20. HOME MEDICATIONS: 1. Xanax 0.25 t.i.d. p.r.n 2. Seroquel 12.5 twice a day. 3. Aricept 10 mg daily. SOCIAL HISTORY: Negative for substance abuse. Negative for alcohol. Negative for smoking. MENSTRUAL HISTORY: Postmenopausal. FAMILY HISTORY: Not available. OCCUPATIONAL HISTORY: Disables. 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-related global parenchymal volume loss of the brain, history of degenerative joint disease of the spine, history of sacroiliitis, history of degenerative joint disease of the right hip, history of bilateral ethmoid mucosal thickening, degenerative joint disease of the cervical spine, history of left humeral neck impacted comminuted fracture, history of early onset Alzheimer's dementia with behavioral disturbances with hallucination, history of cognitive impairment and judgment impairment with behavioral disturbances, history of anxiety disorder, history of confusion, agitation, hallucination, history of early dementia with behavioral disturbances, history of gait dysfunction, history of fall. Patient's past medical history is positive for hypertension. HOME MEDICATIONS: Xanax 0.25 t.i.d. p.r.n., Seroquel 12.5 twice a day, Aricept 10 mg daily. PHYSICAL EXAMINATION: VITAL SIGNS: The patient is seen in stretcher #7. In the emergency room, T-max 98.8, pulse 59, blood pressure 127/87, respiration 18, O2 sat 98%. GENERAL: Patient is seen lying in the bed. Patient is alert, awake, responsive, totally confused and disoriented, does not know her name, does not know the place, does not know the year, date, month. Patient refuses to take her off. HEENT: Shows pink conjunctivae. No oropharyngeal lesion. Questionable soft carotid bruit. CHEST: Kyphosis. LUNGS: Shows no rales, crackles or wheezing. CARDIOVASCULAR: Examination S1, S2, regular rhythm. Unable to appreciate any murmur, gallop or rub because patient keeps holding my hand and moving it away. ABDOMEN: Soft. Positive bowel sounds. Unable to appreciate any hepatosplenomegaly. No guarding. No rigidity. No rebound tenderness. GENITALIA: Female. RECTAL: Examination is deferred. EXTREMITIES: Shows no pitting edema, no calf tenderness of lower extremity. NEUROLOGIC: Patient's motor strength is 5/5 in upper and lower extremities. Gait examination could not be tested. Detailed neurological examination is extremely limited because patient is uncooperative and refuses to cooperate, does not wish to answer any questions. DIAGNOSTICS: CBC was within normal limit. PT/PTT is normal. Chemistry is only significant for BUN of 23, creatinine of 5.1. EKG none. Chest x-ray, none. Patient recently has been hospitalized multiple times since end of 07/2017 where patient had two CAT scans of the head. Patient had carotid ultrasound, chest x-rays were done. The last EKG, which was done in 09/09 with sinus bradycardia. IMPRESSION AND PLAN: 1. Acute exacerbation of severe early onset Alzheimer's dementia with behavioral disturbances and questionable spasms and involuntary muscle twitching and tremors. 2. Severe behavioral disturbances. 3. Confusional state. 4. Encephalopathy. 5. Mild prerenal kidney injury. 6. Mild non-hemolyzed hyperkalemia. 7. History of hallucination. Plan at this time, patient consulted with Neurology and Psychiatry. CURRENT MEDICATIONS: 1. Aricept 10 mg daily. 2. Colace 100 mg three times a day. 3. Drisdol 50,000 weekly. 4. Ecotrin 81 mg daily. 5. DVT prophylaxis with heparin 5000 subcu q. 8. 6. Protonix 40 mg daily for GI prophylaxis. 7. Seroquel 12.5 b.i.d. 8. Patient is started on IV fluid 0.9 normal saline at 100 mL an hour for 2 liters. 9. Tylenol 650 q. 6 p.r.n. 10. Patient is on Xanax 0.25 t.i.d. p.r.n. 11. Zofran 4 mg IV q. 4 p.r.n. EEG ordered. Patient is put on neuro checks . Out of bed, KYLIE stockings, SCDs, physical therapy, occupational therapy ordered. Patient will be ordered EEG. Patient has been ordered MRI, MRA of the brain if the patient cooperates. At present, patient is awaiting for a bed in the floor. Patient's further management will be dependent upon the patient's clinical condition, hemodynamic status and as per the patient response to therapeutic intervention and as per patient's diagnostic test results. In addition, patient's case is also referred to Tunnel Kiln Repairer for discharge planning. Dictated and electronically signed, not read. Daniel Salvador MD
[2017-09-14] MEDS: Pantoprazole 40 mg EC Tab PO SCH (06:45)
[2017-09-14] MEDS ORDERED: DiphenhydrAMINE 50 mg/ml Inj IM ONE (10:00)
[2017-09-14 17:23] VITALS: RESP 20
--- NOTE | 2017-09-14 19:39 | PN ---
DATE: 09/14/2017 LOCATION: Patient was seen in room 560, bed 1. SUBJECTIVE: Patient was seen lying in the bed. Patient is alert, awake, responsive, confused, disoriented. MRI brain, MRA of the brain was attempted twice with sedation, but patient was unable to cooperate for the MRI and patient was unable to do the MRI and MRA of the brain. Patient's nurse's notes also reflect that the patient was unable to do the MRI. Overnight nursing notes were reviewed. Patient was found to be combative, refused medications. Patient was unable to cooperate for the MRI. high lift driver, patient refused labs. Patient became combative and belligerent, pulled the IVs out. Code cindy was called earlier today because of the patient's behavioral attitude. PHYSICAL EXAMINATION: VITAL SIGNS: T-max 97.9, pulse 62, blood pressure 108/60, respirations 19, O2 sat 98%. HEENT: Head: Normocephalic, atraumatic. Shows pink conjunctivae. Anicteric sclerae. No oropharyngeal lesion. No neck rigidity. CHEST: Kyphosis. LUNGS: Shows no rales, crackles or wheezing. CARDIOVASCULAR: S1, S2, regular rhythm. ABDOMEN: Soft, positive bowel sounds. Patient is still uncooperative with exam and keeps moving. No costovertebral angle tenderness noted. GENITALIA: Female. RECTAL: Deferred. EXTREMITIES: Shows no pitting edema, no calf tenderness, no Vicki's signs. NEUROLOGIC: Patient is alert, awake, responsive, sleeping, agitated episodically, uncooperative episodically, confused, disoriented, belligerent with the nurses. LABORATORY DATA: Patient refused lab work x2 today. We will reorder again. DIAGNOSTICS: From yesterday: Cholesterol is 206, LDL 103, HDL 69. Vitamin D 20, which is low. As mentioned, patient could not do the MRI and MRA brain. Patient's EEG is still pending. We are still waiting evaluation by Neurology and Psychiatry. IMPRESSION: 1. Severe combative and belligerent behavioral disorder with poor compliance and noncompliance. 2. Hypercholesterolemia with elevated LDL. 3. Hypovitaminosis D. 4. Advanced early onset Alzheimer's type dementia with severe behavioral disorder. 5. Acute exacerbation of severe early onset Alzheimer's dementia. 6. Confusional state. 7. Encephalopathy. 8. Mild prerenal kidney injury. 9. Mild non-hemolyzed hyperkalemia. 10. History of hallucination. PLAN: At this time, I have reordered the labs for the morning. Patient has urine cultures still not done. We are awaiting for Neurology and Psychiatry evaluation. Patient's case referred for social media strategist for discharge planning. Lyme titers are pending. CURRENT MEDICATIONS: 1. Aricept 10 mg daily. 2. Patient is ordered Ativan 0.5 mg IV q. 4 p.r.n. by the psychiatrist. 3. Patient is on Colace 100 mg 3 times a day. 4. Drisdol 66944 units weekly. 5. Ecotrin 81 mg daily. 6. Haldol 0.5 mg IV q. 4 hours p.r.n. ordered by Psychiatry. 7. Heparin 5000 subcu q. 8. 8. Lipitor 40 mg daily. 9. Protonix 40 mg daily. 10. Seroquel 12.5 mg twice a day. 11. Xanax 0.25 mg p.o. t.i.d. p.r.n. 12. Zofran 4 mg IV q. 4 p.r.n. EEG has been ordered, heart-healthy diet ordered, out of bed, KYLIE stocking, SCDs, physical and occupational therapy ordered. At present, in view of patient's present medical condition and advanced Alzheimer's type dementia with behavioral disorder, the patient most likely will need 24-hour care and supervision with activities of daily living whether at home or a long-term placement on [facility] for which patient's case was deferred to social media strategist for discharge planning and family meeting with the social media strategist. Dictated and electronically signed, not read. Daniel Salvador MD
--- NOTE | 2017-09-14 23:09 | CON ---
DATE: HISTORY OF PRESENT ILLNESS: Patient is a 62-year-old Urdu female with advanced dementia, who is well known to Psychiatry due to behavioral disturbances, patient was hospitalized at our inpatient unit from 08/24/2017 to 08/27/2017 with a diagnoses of dementia with behavioral disturbance, patient was also consulted by Dr. Salcido on 09/11/2017 in which she recommended that her obtain legal guardianship over patient as the patient does not have any capacity. At this present admission, the patient was brought to the ER because of involuntary twitching and muscle spasms, a symptom that she has had in the past. On the medical floor, she has also shown paranoia, disorientation, confusion and agitation. Psychiatry was called to consult regarding her confusion and her behavioral disturbance. I reviewed previous records, which indicated patient was discharged on Ativan 0.5 mg daily and Seroquel 12.5 mg at bedtime on 08/27/2017. Dr. Salcido also provided a prescription for Xanax 0.25 mg p.o. t.i.d. on 09/11/2017. I attempted to interview patient today around 7:40 a.m.; however, she was acutely agitated, paranoid, confused and illogical. She became combative and belligerent and could not be redirected. Unfortunately, jorge white needed to be called in and Ativan was given IM to her. I did meet with her at a later time and patient was a little bit calmer and she did not order me out of her room as vehemently as before; however, she was still unhappy to see me. Patient was quite labile, emotional and she indicates that she did not trust the staff members who were in the hospital and stated that "you all want to kill me." Patient denied depression, however, and she started crying a few minutes later and it is unclear what triggered her crying spell. Patient will often start a thought, however, will not continue it in any logical manner. Her speech is not fluent and there is a little bit of latency. Her focus is poor. Her memory is poor. She is inconsistent when she responds to me and patient is considered to be globally disoriented. Regarding her history, she can only tell me that she is and she lives with her . Patient denies having any children at all. I asked her multiple times about her children and she continues to deny having any children. She denies being in any pain; however, she does appear to be emotionally wounded regarding the Ativan IM that was given to her; however, this was a necessary response considering patient's behavior was upsetting neighboring patients on the medical unit. She denies any issues with her medications at this time although it is quite clear she does not know what medications she is taking. Her insight and judgement are considered to be fair. VITAL SIGNS: 97.9, 58, 123/73 and 16 at 04:00 p.m. yesterday. LABORATORY DATA: Lab records reviewed by this provider. MEDICATIONS: Relevant psychiatric medications include Xanax 0.25 mg p.o. t.i.d. p.r.n., Aricept 10 mg p.o. daily, Seroquel 12.5 mg p.o. b.i.d. scheduled, patient refused Seroquel this morning. IMPRESSION: Alzheimer dementia with behavioral disturbance. RECOMMENDATIONS: We will continue with Seroquel 12.5 mg p.o. b.i.d. as well as Xanax 0.25 mg p.o. t.i.d. p.r.n. We will also provide very low dose of Haldol 0.5 mg p.o. q. 4 p.r.n. for her agitation on the unit given with Ativan 0.25 mg. Psychiatry will continue to follow up patient's progress, intolerance to medications as well as her orientation and behavior, specifically we will follow up on 09/15/2017. Efren Moore MD
[2017-09-15] MEDS: Pantoprazole 40 mg EC Tab PO SCH (05:25)
[2017-09-15 06:48] LABS: BASO # 0.02 K/mm3 (0.0-2.0); BASO % 0.3 % (0.0-3.0); EOS # 0.2 (0.0-0.7); EOS % 2.5 % (1.5-5.0); GRAN # 3.5 (1.4-6.5); LYMPH # 2.4 (1.2-3.4); LYMPH % 35.2 % (22.0-35.0); MEAN CORPUSCULAR HEMOGLOBIN 28.9 pg (25.0-35.0); MEAN CORPUSCULAR HGB CONC 32.9 g/dl (31.0-37.0); MEAN PLATELET VOLUME 9.6 fl (7.0-11.0); MONO # 0.7 (0.1-0.6); RBC 4.15 10^6/uL (3.5-6.1); RED CELL DISTRIBUTION WIDTH 13.3 % (11.5-14.5); WHITE BLOOD COUNT 6.7 10^3/ul (4.5-11.0)
[2017-09-15 07:27] LABS: ALB/GLOB RATIO 1.3 (1.1-1.8); ALBUMIN 3.6 g/dL (3.0-4.8); ALT/SGPT 30 U/L (7-56); AST/SGOT 30 U/L (14-36); BILIRUBIN,DIRECT 0.3 mg/dL (0.0-0.4); BLOOD UREA NITROGEN 16 mg/dL (7-21); GFR AFRICAN-AMERICAN > 60; GFR NON-AFRICAN AMERICAN > 60; MAGNESIUM 2.1 mg/dL (1.7-2.2)
[2017-09-15 07:41] VITALS: BP 149/83; PULSE 70; TEMP 98; O2SAT 98
--- NOTE | 2017-09-15 14:53 | PN ---
DATE: SUBJECTIVE: The patient is a 62-year-old female, early onset of dementia, at present moment advanced. Patient most likely has Lewy body dementia with visual hallucinations. This comic writer is very familiar with this case from the previous admission on the medical side. The patient was discharged from the hospital on Friday. Patient was brought back to the hospital by because of twitching as well as tremor. Psych consult was called for evaluation of agitated behavior. Patient was seen by Dr. Moore over the weekend. Patient was agitated, refusing medications yesterday, jorge white was called. This comic writer is following the patient on the medical side today. Patient is deeply sedated during morning round. Was not able to be aroused. Patient needed to have injection of Haldol overnight at 9:30, 0.5 mg with good effect. Neurology consultation was called. EEG was scheduled but because of the patient's behavior, was not able to complete. Vital signs are checked, temperature 98, pulse is 70, blood [id number]/89, respirations 20, oxygen saturation is 98. MEDICATIONS: Reviewed. Xanax 0.25 mg three times a day as needed, most recent was on . Lipitor, patient was not taking; aspirin, patient was not taking; Colace 100 mg three times a day, patient refused to take that medication; Aricept 10 mg daily, patient was not taking it; Haldol 0.5 mg IV push q. 4 hours as needed for agitation was started by Dr. Moore; Ativan 0.5 mg IV push q. 4 hours as needed for agitation was given on . Protonix, the patient refused and Seroquel, the patient refused. LABORATORY DATA: Labs reviewed, seems to be within normal limits. Toxicology is negative for any substances. Notes from , impression is Alzheimer dementia. Patient required 24 hours care or daily living or long-term placement in the [facility] recommended. MENTAL STATUS EXAMINATION: This comic writer was not able to assess because the patient is sleeping deeply. IMPRESSION: Most likely the patient has Lewy body dementia with behavioral disturbances, visual hallucinations and paranoia. Patient does not have history of mental illness. PLAN: Xanax should be continued. Seroquel should be continued. Neurology is on board. Social service is on board. Most likely, the patient needs to have 24-hour care or placement to the NH facility, but pt's refused to do so. at the same time pt's keeps bringing pt to the hospital. EEG needs to be completed. This case is complicated because of a combination of neurological problems, behavioral issues, family dynamics. Patient's does not have power of tax associate attorney over the patient, pt does not have a legal guardian, This comic writer would recommend placement for the patient because it is hard for the to take care of the patient. We will follow up and advise accordingly. Should you have any questions, give me a call back. Thank you very much for letting me participate in care of your patient. addendum: pt's approached this comic writer, said he brought pt because "she had some twitching, I know it is clonic-tonic seizures", this comic writer advised not give any diagnosis because it is incorrect information and only medical/ neurology team could make that dx, said "my was perfectly fine, she was happy to know that my son will have a child soon, she was able to understand that", he also said that "oh, on decrease dose of Seroquel she slept through the night, but she woke up at 6am with some jumping movement", then pt' s was trying to show this comic writer some video of some movements, but do not look like seizures, but this comic writer advised to show it to the neurology team , pt did not lose her conciseness, seemed to be comfortable. said that pt did not have problems to take meds at home, did not have any aggression or agitation. was educated about poor prognosis of this disease, was advised to discuss with the family option of 24/7 care and possible NH placement. pt herself presented much better when her is near by, pt also observed eating with good appetite, no agitation or aggression. d/w in details over the phone d/w in details over the phone it took more than 45min to take care of this pt Thuy Salcido MD [facility] # [id number] MTDD
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
--- NOTE | 2017-09-16 08:50 | PN ---
DATE: 09/15/2017 NEUROLOGY FOLLOWUP CHIEF COMPLAINT: Followup for Alzheimer type dementia. SUBJECTIVE: The patient is lying comfortably in bed, no further tremors. EEG showed no acute abnormalities. The patient was comfortable. Case discussed with Psychiatry. The patient needs mostly home care placement in the senior care, but is reluctant and for every small issue. REVIEW OF SYSTEMS: A 14-point review of systems is negative except as per the HPI. MEDICATIONS: Reviewed by nurse reconciliation sheet. FAMILY HISTORY: Noncontributory. SOCIAL HISTORY: No illicit drug use, smoking, or EtOH abuse. PHYSICAL EXAMINATION: VITAL SIGNS: Temperature 98, pulse rate 70, blood pressure 149/82, respiratory rate 20, oxygen saturation 98% by room air. GENERAL: The patient is sitting up in bed, comfortable, in no acute distress. HEENT: Atraumatic, normocephalic. PERRLA. Extraocular muscles intact. NECK: Supple. No JVD, no adenopathy noted. LUNGS: Clear to auscultation. No adventitious sounds. HEART: S1 and S2. Normal rate and rhythm. No murmurs, rubs, or gallops. ABDOMEN: Soft, nontender, and nondistended. Bowel sounds are present. EXTREMITIES: No clubbing. No cyanosis. Peripheral pulses 2+ felt bilaterally. NEUROLOGIC: The patient is alert and oriented to self, not month or year. Recall after 5 minutes is 0/3. Poor attention span and slow thought process. Cannot draw a clock, cannot tell the address where she is, and cannot tell the season on the year that she is in. Otherwise, has a very flat affect. Cranial nerves II through XII intact. Motor exam: Slight increased tone throughout. Moves all extremities equally. No tremor seen. Sensory exam: Light touch, pinprick, proprioception, and vibration intact. DTRs are 2+ throughout. Coordination: [id number] intact. Gait is deferred for now. LABORATORY DATA: Reviewed. IMPRESSION: 1. This is an early Alzheimer dementia with behavioral disturbance with some intermittent paranoia. At this time, recommend continue with Seroquel 12.5 mg p.o. b.i.d. and Xanax 0.5 p.o. b.i.d. 2. Need social services assistant at home as well as possibly [id number] care by an outside facility or senior care placement. At this time, case clinically discussed with Psychiatry, agreed with the above findings as well. Lorenzo Oviedo MD
[2017-09-16 17:15] LABS: LYME IGM NEGATIVE (NEGATIVE)
[2017-09-16 17:17] LABS: LYME IGG NEGATIVE (NEGATIVE)
== END 2017-09-15 15:06 | disposition home or self-care (01) | DRG 56 ==
LOC: ED 07:44 → ERH 09:19 → 5RNO 11:07
PROVIDERS: ADMIT Internal Medicine; ATTEND Internal Medicine
DX: G31.83 Neurocognitive disorder with Lewy bodies (principal); G93.40 Encephalopathy, unspecified; R56.9 Unspecified convulsions; F02.81 Dementia in other diseases classified elsewhere, unspecified severity, with behavioral disturbance; G30.0 Alzheimer's disease with early onset; E87.5 Hyperkalemia; M41.9 Scoliosis, unspecified; F22 Delusional disorders; E55.9 Vitamin D deficiency, unspecified; E78.00 Pure hypercholesterolemia, unspecified; I10 Essential (primary) hypertension; M16.11 Unilateral primary osteoarthritis, right hip; Z53.20 Procedure and treatment not carried out because of patient's decision for unspecified reasons; Z79.899 Other long term (current) drug therapy; Z91.19 Patient's noncompliance with other medical treatment and regimen; Z87.81 Personal history of (healed) traumatic fracture